=== PATIENT | female | born 1960 | race Caucasian/White ===

== ENCOUNTER 2020-06-21 16:00 | Emergency (ER) | payer OTHER, SELFPAY ==
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
[2020-06-21 17:08] VITALS: BP 131/81; PULSE 75; RESP 18; TEMP 36.8; O2SAT 98; BMI 21.7
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
== END 2020-06-21 20:08 | disposition home or self-care (01) ==
PROVIDERS: Emergency Provider Emergency Medicine; PCP Internal Medicine
DX: S09.90XA Unspecified injury of head, initial encounter (principal); S00.83XA Contusion of other part of head, initial encounter; S16.1XXA Strain of muscle, fascia and tendon at neck level, initial encounter; V43.52XA Car driver injured in collision with other type car in traffic accident, initial encounter; Y93.89 Activity, other specified; Y92.414 Local residential or business street as the place of occurrence of the external cause; Y99.9 Unspecified external cause status
CPT/HCPCS: 70450; 70486; 72125; 99284

== ENCOUNTER 2022-05-01 13:58 | Outpatient (REF) | payer MEDICARE, MEDICAID, SELFPAY ==
[2022-05-03 05:39] LABS: Lyme Abs Screen <0.90 index
== END 2022-05-01 13:59 | disposition home or self-care (01) ==
LOC: HO.HMGCLDS 13:58
PROVIDERS: PCP Family Medicine; Visit Provider Nurse Practitioner Family
DX: T14.8XXA Other injury of unspecified body region, initial encounter (principal); W57.XXXA Bitten or stung by nonvenomous insect and other nonvenomous arthropods, initial encounter; Y93.9 Activity, unspecified; Y92.9 Unspecified place or not applicable; Y99.9 Unspecified external cause status
CPT/HCPCS: 36415; 86617; 86618

== ENCOUNTER 2023-08-13 12:28 | Outpatient (AMB) | payer OTHER, SELFPAY ==
--- NOTE | 2023-08-13 12:55 | AM.OFFWIN_ITS ---
Intake Vital Signs 08/13/23 12:56 Height 5 ft 6 in Weight 128 lb BMI 20.7 BP 122/70 Blood Pressure Location Rt brachial Position Sitting Pulse 78 Pulse Source Pulse Oximeter Temp 98.2 F Temp Source Temporal Artery Scan Pulse Oximetry (%) 98 Oxygen Delivery Method Room Air Intake Visit Reasons: Abd Cramping Intake Note: pt here for abdominal cramping. Concerned w/ partial bowel obstruction. Bloating. Does not feel like having a complete bowel movement. Symptoms started last week. Took Miralax on 08/08. Very small improvement in symptoms. Patient Tobacco Use Status: Former Tobacco user Allergies doxycycline Allergy (Mild, Verified 08/13/23 14:05) Nausea Sulfa (Sulfonamide Antibiotics) Allergy (Mild, Verified 08/13/23 14:05) Rash Medication List - Last Reconciled 08/13/23 by ALEXX Sandoval cefuroxime axetil 500 mg PO Q12H 14 days citalopram 20 mg PO DAILY doxycycline hyclate 100 mg PO BID 14 days lorazepam 1.5 mg PO BEDTIME simethicone (Gas Relief (simethicone)) 180 mg PO BID PRN Do you need a note to return to daycare/school/sports/work: Yes HPI HPI Comments History of Present Illness Details patient is a 63-year-old female in today for a sick visit. Patient reports that for the week she is been feeling constipated, has been having fewer bowel movements than normal. Does report that she has been able to have small bowel movements however does not feel like she is having a full evacuation. Is having some minor bloating. Reports using MiraLax 1 days prior with mild to moderate effect. Denies fever, denies nausea, denies vomiting, denies diarrhea. Patient reports slight abdominal pain but feels this is due to abdominal distension. Denies any blood in stool. [facility] Medical History Anxiety Depression Social History Alcohol intake: never Patient Tobacco Use Status: Former Tobacco user Review of Systems Const All systems reviewed & are unremarkable except as noted in HPI and below Denies chills and Denies fever(s) Physical Exam Vital Signs: Last Vital Signs Temp 98.2 F 08/13/23 12:56 Pulse 78 08/13/23 12:56 BP 122/70 08/13/23 12:56 Pulse Ox 98 08/13/23 12:56 Oxygen Delivery Method Room Air 08/13/23 12:56 BMI result Body Mass Index 20.7 Const Other: Appearance: Alert.? Oriented X3.? No acute distress.? Head: Normocephalic. Respiratory: No respiratory distress.? Breath sounds normal.? Abdomen: Slight distention. No Abd pain on palpitation. Bowel sounds active. Skin: Skin warm and dry.? Normal skin color.? Normal skin turgor.? Back: No midline tenderness, no C-spine tenderness, full range of motion, no CVA tenderness bilaterally Neuro: Oriented X 3.? No motor deficit.? No sensory deficit. CN 2-12 intact Assessment & Plan Assessment & Plan (1) Constipation: Comment: patient has been instructed that she should drink plenty of water, can utilize senna eat food high in fiber. Can utilize MiraLax again however she should be cautious with this and not use it more than for 2 more days. Will draw labs including CBC, CMP, lipase, amylase, ESR. Will get back to patient with results. Code(s): K59.00 - Constipation, unspecified Qualifiers: Constipation type: unspecified constipation type Qualified Code(s): K59.00 - Constipation, unspecified Plan: Patient has been instructed to follow-up if not better in 3 days Plan will call with lab results Orders: Orders Amylase Today R10.9 - Unspecified abdominal pain Complete Blood Count Auto Diff Today Z13.0 - Encounter for screening for diseases of the blood and blood-forming organs and certain disorders involving the immune mechanism Comprehensive Met. Panel Today R10.9 - Unspecified abdominal pain Lipase Today R10.9 - Unspecified abdominal pain Erythrocyte Sedimentation Rate Today R10.9 - Unspecified abdominal pain Medications: New simethicone (Gas Relief (simethicone)) 180 mg PO BID PRN 30 caps 0RF abdominal distention Coding Level of Care Code Est Pt Level 3 (54839) Diagnoses Constipation, unspecified constipation type K59.00 Constipation type: unspecified constipation type Time Spent (min) 26
[2023-08-13 12:56] VITALS: BP 122/70; PULSE 78; TEMP 36.8; O2SAT 98; BMI 20.7
== END 2023-08-13 14:07 | disposition home or self-care (01) ==
PROVIDERS: PCP Physician Assistant Medical; Visit Provider Nurse Practitioner Primary Care
DX: K59.00 Constipation, unspecified (principal)
CPT/HCPCS: 99213

== ENCOUNTER 2023-08-13 14:56 | Outpatient (REF) | payer OTHER, SELFPAY ==
[2023-08-13 16:04] LABS: MANUAL DIFF FLAG NO
[2023-08-13 16:13] LABS: Basophils Percent Auto 0.3 % (0-2); Eosinophils Percent Auto 0.4 % (0-4); Hematocrit 47.6 % (37.0-47.0); Hemoglobin 15.8 g/dl (12.0-16.0); Imm Gran Abs Auto 0.04 X10*3/uL (0.00-0.03); Imm Gran Pct Auto 0.4 % (0.0-0.4); Lymphocytes Absolute Auto 1.8 X10*3/uL (1.2-4.9); Lymphocytes Percent Auto 19.6 % (20-40); Mean Corpuscular HGB Conc 33.2 g/dl (31.0-35.0); Mean Corpuscular Hemoglobin 31.3 pg (27.0-33.0); Mean Corpuscular Volume 94.3 fL (80.0-98.0); Mean Platelet Volume 9.4 fL (9.4-12.3); Monocytes Absolute Auto 0.7 X10*3/uL (0.1-1.2); Monocytes Percent Auto 7.9 % (2-11); Neutrophils Absolute Auto 6.5 x10*3/uL (2.0-8.3); Neutrophils Percent Auto 71.4 % (45-73); Platelet Count 242 X10*3/uL (160-400); Red Blood Count 5.05 X10*6/uL (4.20-5.50); Red Cell Distribution Width 12.1 % (11.0-16.0); White Blood Count 9.1 X10*3/uL (4.8-10.8)
[2023-08-13 16:53] LABS: Erythrocyte Sedimentation Rate 3 MM/HR (0-20)
[2023-08-13 17:03] LABS: Alanine Aminotransferase 16 U/L (0-31); Albumin Level 4.5 g/dL (3.5-5.0); Alkaline Phosphatase 75 U/L (39-117); Anion Gap 12 (12-20); Aspartate Amino Transferase 20 U/L (5-31); Bilirubin Total 0.6 mg/dL (0.0-1.0); Blood Urea Nitrogen 11 mg/dL (9-16); Calcium 9.3 mg/dL (8.4-10.2); Carbon Dioxide 29 mmol/L (22-29); Chloride 101 mmol/L (96-108); Estimated Glomerular Filt Rate > 60; Glucose Random 81 mg/dL (60-115); Lipase 32 U/L (8-78); Potassium 3.7 mmol/L (3.3-5.1); Sodium 138 mmol/L (135-145); Total Protein 7.5 g/dL (6.5-8.0)
[2023-08-13 17:41] LABS: Amylase 67 U/L (28-100)
== END 2023-08-13 14:57 | disposition home or self-care (01) ==
LOC: HO.HMGCLDS 14:56
PROVIDERS: PCP Physician Assistant Medical; Visit Provider Nurse Practitioner Primary Care
DX: R10.9 Unspecified abdominal pain (principal); Z13.0 Encounter for screening for diseases of the blood and blood-forming organs and certain disorders involving the immune mechanism
CPT/HCPCS: 36415; 80053; 82150; 83690; 85025; 85652

== ENCOUNTER 2023-08-16 13:56 | Outpatient (AMB) | payer OTHER, SELFPAY ==
[2023-08-16 13:57] VITALS: BP 130/70; PULSE 79; TEMP 36.4; O2SAT 97; BMI 21.0
--- NOTE | 2023-08-16 13:57 | AM.OFFWIN_ITS ---
Intake Vital Signs 08/16/23 13:57 Height 5 ft 6 in Weight 130 lb BMI 21.0 BP 130/70 Blood Pressure Location Lt brachial Position Sitting Pulse 79 Pulse Source Pulse Oximeter Temp 97.5 F Temp Source Temporal Artery Scan Pulse Oximetry (%) 97 Oxygen Delivery Method Room Air Intake Visit Reasons: Abdominal Pain Intake Note: pt is here today for abdominal pain started 1 week ago Patient Tobacco Use Status: Former Tobacco user Allergies doxycycline Allergy (Mild, Verified 08/16/23 14:14) Nausea Sulfa (Sulfonamide Antibiotics) Allergy (Mild, Verified 08/16/23 14:14) Rash Do you need a note to return to daycare/school/sports/work: No HPI HPI Comments History of Present Illness Details Patient is a 63-year-old female who was evaluated this clinic on August 12 where she was complaining of abdominal pain with a concern of a blockage. She states on August 08, she took some MiraLax because she felt constipated, she did move her bowels on August 11 but felt like she did not completely evacuate them. She has since had a lot of abdominal bloating and some abdominal pain that is generalized. She denies any fevers. She states that she is able to eat and drink although she is definitely eating and drinking less. She denies any burning with urination, increased frequency of urination, history of gallstones, heavy drinking and states she has never had her appendix removed. She states on August 12, she came in and had labs done which she was told were all normal. She states she took some more laxatives yesterday but has only been moving her bowels were very skinny but formed bowel movements, which is not her normal. [facility] Medical History Anxiety Depression Social History Alcohol intake: never Patient Tobacco Use Status: Former Tobacco user Review of Systems Const All systems reviewed & are unremarkable except as noted in HPI and below Physical Exam Vital Signs: Last Vital Signs Temp 97.5 F 08/16/23 13:57 Pulse 79 08/16/23 13:57 BP 130/70 08/16/23 13:57 Pulse Ox 97 08/16/23 13:57 Oxygen Delivery Method Room Air 08/16/23 13:57 BMI result Body Mass Index 21.0 Const General: cooperative, healthy appearing, comfortable, no acute distress and well developed Orientation/consciousness: patient oriented x3 Limitations: no limitations HEENT Head: Yes normal to inspection Eyes General: appearance normal, both eyes and all related structures Neck Neck: Yes normal visual inspection and Yes full ROM Resp Effort & Inspection: normal respiratory effort and able to speak in complete sentences GI Inspection: Yes normal to inspection Palpation (GI): Soft to palpation and Tenderness to palpation present (GI) (slight) in the epigastrum and in the RLQ Skin General skin exam: no rashes or lesions noted Neuro General: patient oriented x3 Extrem General: Yes normal to inspection Assessment & Plan Assessment & Plan (1) Abdominal pain: Code(s): R10.9 - Unspecified abdominal pain Plan: Vital signs are stable and patient is well-appearing, UA negative. PE revealed a little bit of tenderness in her right lower quadrant so I did explain to her that if the pain got worse, she should go to the ER to be ruled out for an appendicitis, did give other red flag signs and symptoms on when to go to the ER She is however able to eat and drink albeit reduced and does not have a fever. Labs were normal on August 12 including her lipase. We will get KUB to assess for constipation as her biggest complaint is feeling like she has incompletely evacuated her bowels and she feels gassy. KUB was unrevealing. (2) Constipation: Comment: Code(s): K59.00 - Constipation, unspecified Qualifiers: Constipation type: unspecified constipation type Qualified Code(s): K59.00 - Constipation, unspecified Plan: see above Plan see above Orders: Orders XR KUB Today K59.00 - Constipation, unspecified, R10.9 - Unspecified abdominal pain Coding Level of Care Code Est Pt Level 4 (23294) Diagnoses Abdominal pain R10.9 Constipation, unspecified constipation type K59.00 Constipation type: unspecified constipation type
== END 2023-08-16 16:38 | disposition home or self-care (01) ==
PROVIDERS: PCP Physician Assistant Medical; Visit Provider Physician Assistant
DX: R10.9 Unspecified abdominal pain (principal); K59.00 Constipation, unspecified
CPT/HCPCS: 99214

== ENCOUNTER 2023-08-16 14:23 | Outpatient (REF) | payer OTHER, SELFPAY ==
--- NOTE | ~2023-08-16 | XR_ITS ---
EXAMINATION: XR ABDOMEN KUB CLINICAL INDICATION: Constipation COMPARISON: None available. TECHNIQUE: AP view of the abdomen. FINDINGS: No large stool burden to suggest constipation. No dilated loops of bowel to suggest obstruction. No free air. 3 mm calcification projects over the upper pole of the left kidney questionable for a stone. Left pelvic calcifications probably represent calcified phleboliths. Degenerative changes of the lower lumbar spine. XR/XR KUB IMPRESSION: No evidence of constipation or obstruction. Question small left renal stone.
== END 2023-08-16 14:24 | disposition home or self-care (01) ==
LOC: HO.HMGCX 14:23
PROVIDERS: PCP Physician Assistant Medical; Visit Provider Physician Assistant
DX: K59.00 Constipation, unspecified (principal); R10.9 Unspecified abdominal pain
CPT/HCPCS: 74018

== ENCOUNTER 2023-08-28 13:55 | Outpatient (AMB) | payer OTHER, SELFPAY ==
--- NOTE | 2023-08-28 13:59 | AM.OFFWIN_ITS ---
Intake Vital Signs 08/28/23 14:00 Height 5 ft 6 in Weight 130 lb 8 oz BMI 21.1 BP 130/72 Blood Pressure Location Lt brachial Position Sitting Pulse 84 Pulse Source Pulse Oximeter Temp 97.2 F Temp Source Oral Pulse Oximetry (%) 97 Oxygen Delivery Method Room Air Intake Visit Reasons: EP AB pain/bloating Intake Note: pt is here for abd pain with bloating Patient Tobacco Use Status: Former Tobacco user Allergies doxycycline Allergy (Mild, Verified 08/28/23 13:59) Nausea Sulfa (Sulfonamide Antibiotics) Allergy (Mild, Verified 08/28/23 13:59) Rash Do you need a note to return to daycare/school/sports/work: No HPI EP AB pain/bloating HPI Details This is a 63-year-old female patient who presents today with abdominal pain and bloating for the last several weeks. She was seen here at the walk-in on 2 prior visits this month for the same issue. She reports abdominal tenderness and bloating, which are exacerbated with eating. She does have some constipation at times, which she takes MiraLax for. She reports today that she has been having normal bowel movements recently. No urinary or vaginal symptoms. Denies any vomiting or reflux. When seen previously here, she had labs done which were within normal limits, and x-ray which did not reveal any abnormal findings. She has an appointment to establish care with a PCP with [facility] in [place], however not until January. She denies any fevers or chills. COUNT INCLUDES THE [facility] Medical History Anxiety Depression Social History Alcohol intake: never Patient Tobacco Use Status: Former Tobacco user Review of Systems Const All systems reviewed & are unremarkable except as noted in HPI and below Physical Exam Vital Signs: Last Vital Signs Temp 97.2 F 08/28/23 14:00 Pulse 84 08/28/23 14:00 BP 130/72 08/28/23 14:00 Pulse Ox 97 08/28/23 14:00 Oxygen Delivery Method Room Air 08/28/23 14:00 BMI result Body Mass Index 21.1 Const General: cooperative and no acute distress HEENT Head: Yes normal to inspection Neck Neck: Yes no lymphadenopathy Resp Effort & Inspection: normal respiratory effort Auscultation: clear to auscultation bilaterally Cardio Rate: regular rate Rhythm: regular rhythm GI Other: mild epigastric tenderness and bloating. No rebound tenderness. No guarding. General: Yes bladder normal to palpation Bimanual exam- vagina & uterus: bladder normal to palpation Skin General skin exam: no rashes or lesions noted Extrem General: Yes capillary refill normal and Yes no clubbing, cyanosis or edema Psych Appearance: grossly normal Mental Status: mental status grossly normal Speech and movement: Normal speech and movement present Assessment & Plan Assessment & Plan (1) Abdominal bloating: Code(s): R14.0 - Abdominal distension (gaseous) Plan: Patient has ongoing abdominal pain and bloating. Normal XR and labs previously [facility]. I do feel at this point she would benefit from GI referral and/or additional abdominal imaging. She does not have a PCP appt. until January, however I called [place] PCP office and they are able to see her tomorrow, 08/28. I informed patient of this and she can make appointment. All questions were answered and she agrees to plan. Coding Level of Care Code Est Pt Level 4 (42560) Diagnoses Abdominal bloating R14.0
[2023-08-28 14:00] VITALS: BP 130/72; PULSE 84; TEMP 36.2; O2SAT 97; BMI 21.1
== END 2023-08-28 14:48 | disposition home or self-care (01) ==
PROVIDERS: PCP Physician Assistant Medical; Visit Provider Nurse Practitioner Family
DX: R14.0 Abdominal distension (gaseous) (principal)
CPT/HCPCS: 99214

== ENCOUNTER 2023-08-29 13:48 | Outpatient (AMB) | payer OTHER, SELFPAY ==
--- NOTE | 2023-08-29 12:26 | MHC.PC.OV ---
Intake Visit Reasons: Regular Check up/gi issues Allergies doxycycline Allergy (Mild, Verified 08/28/23 13:59) Nausea Sulfa (Sulfonamide Antibiotics) Allergy (Mild, Verified 08/28/23 13:59) Rash PFSH Medical History Anxiety Depression Social History Alcohol intake: never Patient Tobacco Use Status: Former Tobacco user Physical exam (Primary Care) Tobacco/Smoking Status: Tobacco use Status Patient Tobacco Use Status Former Tobacco user 08/28/23 14:00 Coding
--- NOTE | 2023-08-29 13:50 | A.OFFPC_ITS ---
Vital Signs 08/29/23 13:59 Height 5 ft 6 in Weight 133 lb BMI 21.5 BP 112/64 Blood Pressure Location Lt brachial Position Sitting Pulse 72 Pulse Source Pulse Oximeter Temp 97.8 F Temp Source Temporal Artery Scan Pulse Oximetry (%) 97 Oxygen Delivery Method Room Air Intake Visit Reasons: Regular Check up/gi issues Intake Note: patient here for new patient visit c/o abdominal pain and bloating. 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: No Is last menstrual period known: No Post menopausal: No Patient : No Allergies doxycycline Allergy (Mild, Verified 08/29/23 13:53) Nausea Sulfa (Sulfonamide Antibiotics) Allergy (Mild, Verified 08/29/23 13:53) Rash Tobacco use date assessed: 08/29/23 Dental Screening Dental Screen Date: 08/29/23 Did you have a dental visit in the last 12 months?: Yes Did you have a dental problem in the last 6 months where you did not have access to dental care?: No Was dental information given to patient?: Patient has dentist HPI HPI Comments History of Present Illness Details This is a 63-year-old female with a past medical history of depression with anxiety, hyperlipidemia, upper GI bleed in 2016 and osteoporosis presenting to establish care and discuss GI symptoms. She has constipation chronically for many years. She takes a fiber supplement. She works at [employer] 3 days per week. She does not have a problem having a bowel movement on days she doesn't work and she can relax at home in the morning. About a month ago she worked 5 days straight. She was very bloated and constipated. She took MiraLax that Saturday. She passed a bowel movement the following Saturday. She was still bloated and abdomen sore and tender. She went to urgent care. They did labwork. CBC, lipase, amylase, CMP normal. She said they also did a urine culture, and she did not have an infection. Placed on simethicone. She went back a week later because she was still constipated and bloated. KUB showed no constipation or obstruction. She went back yesterday because she is still bloated and was told to see a primary care, and she was referred here. Symptoms are stable today. She had a BM yesterday. It's soft now since she took Miralax. She started align probiotic. She denies vomiting and blood in stools. Her appetite is a little decreased, but she is still eating and drinking. She says stools are thinner recently for the past month, too. She has colonoscopies every 5 years because her father had colon cancer. She believes the last 1 was in 2019 at [facility]. She recalls she had diverticulosis, and there was a polyp removed. Osteoporosis-per patient, she is overdue for bone density exam. She takes calcium and vitamin-D. Hyperlipidemia-she tried medication for this at 1 point. She did not tolerate it. Depression with anxiety-she has a therapist and med prescriber. She is currently stable on her medications. She has a mammogram scheduled. She accepts referral to Dr. Buck for her annual gynecologic exam. [facility] Medical History (Updated 08/29/23 @ 15:09 by MARIO Chen) Osteoporosis GI bleed Hyperlipidemia Depression with anxiety Anxiety Depression Family History (Updated 08/29/23 @ 14:15 by MARIO Chen) Father Alcohol abuse CHF (congestive heart failure) Colon cancer Lung cancer Brother Alcohol abuse FH: mental illness CHF (congestive heart failure) Social History Housing: Other ([facility]) Alcohol intake: never Patient Tobacco Use Status: Former Tobacco user (years ago) e-Cigarette/Vaping Use: Former Use (she just tried it) Second Hand Smoke Exposure: No Current occupational status: employed Current occupation: [employer] Current occupational exposures/hazards: No Cognitive needs: No Vision needs: Yes Questionnaire PHQ-9 Over the last 2 weeks, how often have you been bothered by any of the following problems? 1. Little interest or pleasure in doing things: several days 2. Feeling down, depressed, or hopeless: several days 3. Trouble falling or staying asleep, or sleeping too much: several days 4. Feeling tired or having little energy: several days 5. Poor appetite or overeating: several days 6. Feeling bad about yourself - or that you are a failure or have let yourself or your family down: not at all 7. Trouble concentrating on things, such as reading the newspaper or watching television: not at all 8. Moving or speaking so slowly that other people could have noticed. Or the opposite - being so fidgety or restless that you have been moving around a lot more than usual: not at all 9. Thoughts that you would be better off or of hurting yourself in some way: not at all Total score: 5 Depression Screening Interpretation: Positive Depression Screening Follow-up: In treatment Depression Screening Done: Yes 28435 - PHQ-9 Billing: Yes Source: Developed by Drs. Greg Cedillo, Shawanda June, Vasile Guerra and colleagues, with an educational alejandrina from [employer]. Thrive Questionnaire Date Thrive assessed: 08/29/23 I am a: Patient What is your living situation today?: I have a steady place to live Within the past 12 months, did the food you bought not last and you didn't have the money to get more?: Never true Within the past 12 months, did you worry whether your food would run out before you got money to buy more?: Never true Do you have trouble paying for medicines?: No Do you have trouble getting transportation to medical appointments?: No Do you have trouble paying your heating and electricity bill?: No Do you have trouble taking care of your child, family member or friend?: No Do you have trouble with day-to-day activities such as bathing, preparing meals, shopping, managing finances, etc.?: No Are you currently unemployed and looking for a job?: No Are you interested in more education?: No Please select the resources that you would like help with: None Currently or been in a relationship where the following occur: No concerns reported THRIVE Score: 0 AUDIT C Alcohol Use Questionnaire (AUDIT-C) 1. How often do you have a drink containing alcohol?: 2-3 times a week 2. How many drinks containing alcohol do you have on a typical day when you are drinking?: 1 or 2 3. How often do you have six or more drinks on one occasion?: Never Total Score: 3 TINO-7 AMB Questionnaire TINO-7 Date TINO - 7 assessed: 08/29/23 Feeling nervous, anxious, or on edge: 1 = Several days Not being able to stop or control worryin = Several days Worrying too much about different things: 1 = Several days Trouble relaxin = Several days Being so restless that it is hard to sit still: 0 = Not at all Becoming easily annoyed or irritable: 1 = Several days Feeling afraid as if something awful might happen: 1 = Several days Total TINO-7 score (0-4 normal; 5-9 mild; 10-14 moderate; 15-21 severe): 6 Source: Developed by Drs. Greg Cedillo, Shawanda June, Vasile Guerra and colleagues, with an educational alejandrina from [employer]. TINO-7 Assessment Billing TINO-7 Assessment Tool: TINO-7 Assessment 64642 Review of Systems Const Details: Constitutional: No unexplained weight loss, fever, chills, fatigue or night sweats. Respiratory: No shortness of breath Cardiovascular: No chest pain Gastrointestinal: see HPI Genitourinary: No dysuria, hematuria, urinary frequency. Hematologic/Lymphatics: No bleeding or bruising. No painful lymph nodes. Skin: No rash or itching. Physical exam (Primary Care) Vital Signs: Last Vital Signs Temp 97.8 F 08/29/23 13:59 Pulse 72 08/29/23 13:59 BP 112/64 08/29/23 13:59 Pulse Ox 97 08/29/23 13:59 Oxygen Delivery Method Room Air 08/29/23 13:59 BMI result Body Mass Index 21.5 Tobacco/Smoking Status: Tobacco use Status Tobacco use date assessed 08/29/23 08/29/23 13:59 Patient Tobacco Use Status Former Tobacco user (years 08/29/23 13:59 ago) e-Cigarette/Vaping Use Former Use (she just tried 08/29/23 13:59 it) PHQ-9: PHQ-9 Score PHQ-9: Total score 5 08/29/23 14:15 Depression Screening Interpretation: Positive Depression Screening Follow-up: In treatment Thrive Assessment: Date of Thrive Assessment Date Thrive assessed 08/29/23 08/29/23 14:06 Currently or been in a relationship where the following occur: No concerns reported Const Other: Constitutional: Alert, in no distress. Head: Normocephalic. Neck: Supple, Full range of motion. No lymphadenopathy. Respiratory: Clear to auscultation. Cardiovascular: S1 S2 regular. No murmurs. Gastrointestinal: Abdomen soft, mild diffuse tenderness and distension. Normal bowel sounds. No palpable masses. Extremities: Warm and well perfused. No clubbing, cyanosis or edema. Psychiatric: Normal mood and affect Assessment and Plan Assessment & Plan (1) Abdominal pain: Code(s): R10.9 - Unspecified abdominal pain Qualifiers: Abdominal location: generalized Qualified Code(s): R10.84 - Generalized abdominal pain Plan: Recent labs and KUB nondiagnostic. Check CT abdomen and pelvis with/without contrast. Check TSH. Switch to Benefiber. Continue MiraLax daily as needed. Continue probiotic. Refer to Gastroenterology. Warning signs warranting ER evaluation reviewed. (2) Constipation: Comment: Code(s): K59.00 - Constipation, unspecified Qualifiers: Constipation type: unspecified constipation type Qualified Code(s): K59.00 - Constipation, unspecified Plan: Discuss trial of Linzess depending on CT results. (3) Hyperlipidemia: Code(s): E78.5 - Hyperlipidemia, unspecified Qualifiers: Hyperlipidemia type: pure hypercholesterolemia Qualified Code(s): E78.00 - Pure hypercholesterolemia, unspecified Plan: Check fasting lipid profile. (4) Depression with anxiety: Code(s): F41.8 - Other specified anxiety disorders Plan: Continue treatment plan per psych. (5) Osteoporosis: Code(s): M81.0 - Age-related osteoporosis without current pathological fracture Qualifiers: Osteoporosis type: age-related Presence of current pathological fracture: without current pathological fracture Qualified Code(s): M81.0 - Age- related osteoporosis without current pathological fracture Plan: The recommendation is to get a total of 1200mg of calcium daily from dietary sources and supplements. Women should also ingest a total of 800 to 1000 international units of vitamin D daily. Avoid tobacco use and excessive alcohol use. Weightbearing exercise as tolerated is encouraged. Bone density test ordered. Orders: Orders Lipid Panel Today M81.0 - Age-related osteoporosis without current pathological fracture, Z13.6 - Encounter for screening for cardiovascular disorders Vitamin D 1,25 dihydroxy Today M81.0 - Age-related osteoporosis without current pathological fracture, Z13.6 - Encounter for screening for cardiovascular disorders TSH reflex Free T4 Today E66.9 - Obesity, unspecified, M81.0 - Age-related osteoporosis without current pathological fracture, Z13.6 - Encounter for screening for cardiovascular disorders CT abdomen pelvis wo/w IV con Today K59.00 - Constipation, unspecified, R10.9 - Unspecified abdominal pain XR DEXA axial skeleton Today N95.1 - Menopausal and female climacteric states Referrals MANUFACTURING [employer]INE[employer] Referral Z01.419 - Encounter for gynecological examination (general) (routine) without abnormal findings Coding Level of Care Code Est Pt Level 4 (32960) Complex EM visit Add On G2211 Diagnoses Generalized abdominal pain R10.84 Abdominal location: generalized Constipation, unspecified constipation type K59.00 Constipation type: unspecified constipation type Pure hypercholesterolemia E78.00 Hyperlipidemia type: pure hypercholesterolemia Depression with anxiety F41.8 Age-related osteoporosis without current pathological fracture M81.0 Osteoporosis type: age-related Presence of current pathological fracture: without current pathological fracture Additional Codes TINO-7 Assessment Billing - TINO-7 Assessment Tool: TINO-7 Assessment 69082 ([id number])
[2023-08-29 13:59] VITALS: BP 112/64; PULSE 72; TEMP 36.6; O2SAT 97; BMI 21.5
== END 2023-08-29 14:41 | disposition home or self-care (01) ==
PROVIDERS: PCP Physician Assistant Medical; Visit Provider Physician Assistant Medical
DX: R10.84 Generalized abdominal pain (principal); K59.00 Constipation, unspecified; E78.00 Pure hypercholesterolemia, unspecified; F41.8 Other specified anxiety disorders; M81.0 Age-related osteoporosis without current pathological fracture
CPT/HCPCS: 99214; G2211

== ENCOUNTER 2023-09-09 12:05 | Outpatient (REF) | payer OTHER, SELFPAY ==
[2023-09-09 15:04] LABS: Cholesterol 257 mg/dL (<200); HDL Cholesterol 52 mg/dL (>40); LDL Cholesterol Calculated 179 mg/dL (<100); Triglycerides 130 mg/dL (<150)
[2023-09-09 15:13] LABS: TSH reflex Free T4 2.71 uIU/mL (0.32-4.0)
[2023-09-13 19:38] LABS: VITAMIN D (1,25 OH) D3 39 pg/mL; Vit D (1,25-Dihydroxy) Total 39 pg/mL (18-72); Vitamin D (1,25 OH) D2 <8 pg/mL
== END 2023-09-09 12:06 | disposition home or self-care (01) ==
LOC: HO.HMGCLDS 12:05
PROVIDERS: PCP Physician Assistant Medical; Visit Provider Physician Assistant Medical
DX: M81.0 Age-related osteoporosis without current pathological fracture (principal); E66.9 Obesity, unspecified; Z13.6 Encounter for screening for cardiovascular disorders
CPT/HCPCS: 36415; 80061; 82652; 84443

== ENCOUNTER 2023-10-11 11:14 | Outpatient (REF) | payer OTHER, SELFPAY ==
--- NOTE | ~2023-10-11 | MM_ITS ---
EXAMINATION: BONE DENSITOMETRY CLINICAL INDICATION: Menopausal and female climacteric states. COMPARISON: This is the patient's baseline examination. TECHNIQUE: Using a [employer] DXA System (software version: 13.1) manufactured by [employer], dual-energy x-ray absorptiometry was performed of the lumbar spine and left hip. The images are of good technical quality. Summary results are attached. FINDINGS: LEFT FEMUR, NECK: BMD 0.726 g/cm2, Z-score -0.8, T-score -2.2, osteopenia. LEFT FEMUR, TOTAL: BMD 0.739 g/cm2, Z-score -0.9, T-score -2.1, osteopenia. AP SPINE L1-L4: BMD 0.933 g/cm2, Z-score -0.5, T-score -2.1, osteopenia. IDENTIFIED RISK FACTORS: Early menopause, secondary osteoporosis, history of fracture (adult), osteoporosis. HISTORY OF FRACTURE: Spine. MEDICATIONS: Calcium supplements or multivitamin, vitamin D. MM/XR DEXA axial skeleton IMPRESSION: 1. DIAGNOSIS: Osteopenia based on the lowest T-score value of -2.2 in the femoral neck applying World Health Organization criteria. 2. 10-YEAR FRACTURE RISK PREDICTION, FRAX: Major osteoporotic fracture (clinical spine, forearm, hip or shoulder) 17.1%. Hip fracture 3.1%. 3. Treatment Recommendations: NOF guidelines recommend consideration for treatment in postmenopausal women and men age 50 and older presenting with the following: -A hip or vertebral (clinical or morphometric) fracture. -T-score less than or equal to -2.5 at the femoral neck or spine after appropriate evaluation to exclude secondary causes. -Low bone mass at the hip or spine and a 10-year fracture probability by FRAX of greater than or equal to 3% for hip fracture or greater than or equal to 20% for major osteoporotic fracture based on the [place] adapted WHO algorithm. 4. Other Recommendations: All treatment decisions require clinical judgment and consideration of individual patient factors, including patient preferences, comorbidities, previous drug use, risk factors not captured in the FRAX model (e.g. frailty, falls, vitamin D deficiency, increased bone turnover, interval significant decline in bone density) and possible under or overestimation of fracture risk by FRAX. Additional medical evaluation for secondary cause of low bone mineral density may be appropriate. FUTURE SCAN RECOMMENDATION: People with diagnosed cases of osteoporosis or at high risk for fracture should have regular bone mineral density tests. For patients eligible for Medicare, routine testing is allowed once every 2 years. The testing frequency can be increased to one year for patients who have rapidly progressing disease, those who are receiving or discontinuing medical therapy to restore bone mass, or have additional risk factors.
== END 2023-10-11 11:15 | disposition home or self-care (01) ==
LOC: HO.MAMMO 11:14
PROVIDERS: PCP Physician Assistant Medical; Visit Provider Physician Assistant Medical
DX: Z13.820 Encounter for screening for osteoporosis (principal); Z78.0 Asymptomatic menopausal state
CPT/HCPCS: 77080

== ENCOUNTER 2024-02-18 11:18 | Outpatient (AMB) | payer OTHER, SELFPAY ==
[2024-02-18 11:38] VITALS: BP 118/74; PULSE 79; O2SAT 98; BMI 21.5
--- NOTE | 2024-02-18 11:38 | AM.OFFWIN_ITS ---
Intake Vital Signs 3 02/18/24 11:38 Height 5 ft 6 in Weight 133 lb 6 oz BMI 21.5 BP 118/74 Blood Pressure Location Rt brachial Position Sitting Pulse 79 Pulse Source Pulse Oximeter Pulse Oximetry (%) 98 Oxygen Delivery Method Room Air Intake Visit Reasons: EP WC Cat Bite Patient Tobacco Use Status: Former Tobacco user (years ago) Allergies doxycycline Allergy (Mild, Verified 02/18/24 11:46) Nausea Sulfa (Sulfonamide Antibiotics) Allergy (Mild, Verified 02/18/24 11:46) Rash Medication List - Last Reconciled 02/18/24 by Jose G Hurley MD amoxicillin-pot clavulanate 500-125 mg 1 tab PO Q8H 10 days barium sulfate 2.1%(w/v),2.0%(w/w) Follow instructions per radiology. 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 [facility] Medical History Osteopenia Osteoporosis GI bleed Hyperlipidemia Depression with anxiety Anxiety Depression Family History Father Alcohol abuse CHF (congestive heart failure) Colon cancer Lung cancer Brother Alcohol abuse FH: mental illness CHF (congestive heart failure) Social History Housing: Other ([employer] home) Alcohol intake: never Patient Tobacco Use Status: Former Tobacco user (years ago) e-Cigarette/Vaping Use: Former Use (she just tried it) Second Hand Smoke Exposure: No Current occupational status: employed Current occupation: veterinary medicine doctor Current occupational exposures/hazards: No Cognitive needs: No Vision needs: Yes Review of Systems Const All systems reviewed & are unremarkable except as noted in HPI and below Physical Exam Vital Signs: Last Vital Signs Pulse 79 02/18/24 11:38 BP 118/74 02/18/24 11:38 Pulse Ox 98 02/18/24 11:38 Oxygen Delivery Method Room Air 02/18/24 11:38 BMI result Body Mass Index 21.5 Const General: no acute distress Orientation/consciousness: patient oriented x3 Eyes General: appearance normal, both eyes and all related structures Resp Effort & Inspection: normal respiratory effort and able to speak in complete sentences Neuro General: patient oriented x3 Extrem Hand/finger images: 2 1. 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 Medications: New 2 amoxicillin-pot clavulanate 500-125 mg 1 tab PO Q8H 30 tabs 0RF 10 days Coding Level of Care Code Est Pt Level 3 (36575) Diagnoses Cat bite of finger, initial encounter S61.259A; W55.01XA Encounter type: initial encounter
== END 2024-02-18 12:10 | disposition home or self-care (01) ==
PROVIDERS: PCP Physician Assistant Medical; Visit Provider Internal Medicine
DX: S61.259A Open bite of unspecified finger without damage to nail, initial encounter (principal); W55.01XA Bitten by cat, initial encounter

== ENCOUNTER → 2024-02-18 11:18 | Outpatient (BNVA) | payer OTHER, SELFPAY | PROVIDERS: PCP Physician Assistant Medical; Visit Provider Internal Medicine | DX: S61.251A Open bite of left index finger without damage to nail, initial encounter (principal); W55.01XA Bitten by cat, initial encounter; Y93.9 Activity, unspecified; Y92.9 Unspecified place or not applicable; Y99.9 Unspecified external cause status | CPT/HCPCS: 99212 ==

== ENCOUNTER 2024-08-29 12:56 | Outpatient (AMB) | payer OTHER, SELFPAY ==
[2024-08-29 12:59] VITALS: BP 120/70; PULSE 80; TEMP 36.7; O2SAT 97; BMI 21.5
--- NOTE | 2024-08-29 12:59 | AM.OFFWIN_ITS ---
Intake Vital Signs 08/29/24 12:59 Height 5 ft 6 in Weight 133 lb BMI 21.5 BP 120/70 Blood Pressure Location Lt brachial Position Sitting Pulse 80 Pulse Source Pulse Oximeter Temp 98.1 F Temp Source Oral Pulse Oximetry (%) 97 Intake Visit Reasons: EP Tick on back Intake Note: pt is here for tick on right side of back Patient Tobacco Use Status: Former Tobacco user (years ago) Allergies doxycycline Allergy (Mild, Verified 08/29/24 12:59) Nausea Sulfa (Sulfonamide Antibiotics) Allergy (Mild, Verified 08/29/24 12:59) Rash Medication List - Last Reconciled 08/29/24 by Dylan Bansal MD citalopram 10 mg PO DAILY clonazepam mg PO doxepin 3 mg PO BEDTIME quetiapine mg PO trazodone 50 mg PO BEDTIME PRN Do you need a note to return to daycare/school/sports/work: No HPI EP Tick on back HPI Details patient found a tick on her back and her friend pulled it off with a tick spoon still has retained mouth parts in wound she is unaware of how long this was on her back. rides horses and notes that her horse has had some ticks no fevers, chills or rash PFSH Medical History Osteopenia Osteoporosis GI bleed Hyperlipidemia Depression with anxiety Anxiety Depression Family History Father Alcohol abuse CHF (congestive heart failure) Colon cancer Lung cancer Brother Alcohol abuse FH: mental illness CHF (congestive heart failure) Social History Housing: Other ([employer] home) Alcohol intake: never Patient Tobacco Use Status: Former Tobacco user (years ago) e-Cigarette/Vaping Use: Former Use (she just tried it) Second Hand Smoke Exposure: No Current occupational status: employed Current occupation: [employer] Current occupational exposures/hazards: No Cognitive needs: No Vision needs: Yes Review of Systems Const Denies chills, Denies fatigue, Denies fever(s), Denies headache(s) and Denies weakness ENT Denies dizziness and Denies headache(s) Card Denies dyspnea Resp Denies cough, Denies dyspnea, Denies wheezing and Denies other ( shortness of breath) Musc Denies numbness and Denies tingling Skin/Breast Details: tick bite on back Neuro Denies dizziness, Denies headache(s), Denies numbness, Denies tingling, Denies paresthesias and Denies weakness Psych Denies anxiety and Denies depression Endo Denies fatigue Aller/Immun Denies wheezing Physical Exam Vital Signs: Last Vital Signs Temp 98.1 F 08/29/24 12:59 Pulse 80 08/29/24 12:59 BP 120/70 08/29/24 12:59 Pulse Ox 97 08/29/24 12:59 BMI result Body Mass Index 21.5 Const General: no acute distress and well developed Nutritional Appearance: well nourished Orientation/consciousness: patient oriented x3 HEENT Head: Yes normocephalic and Yes atraumatic Eyes General: appearance normal, both eyes and all related structures Pupils: Equal, round and reactive pupils present EOM: EOMs intact bilaterally Resp Effort & Inspection: normal respiratory effort Skin Other: tick bite on right posterolateral back tick has been removed but mouth parts remain in wound local reaction around wound but no expanding rash Neuro General: patient oriented x3 and gait normal Cranial nerves: Yes Equal, round and reactive pupils present Psych Affect: normal affect Assessment & Plan Assessment & Plan (1) Tick bite: Code(s): W57.XXXA - Bitten or stung by nonvenomous insect and other nonvenomous arthropods, initial encounter Plan: tick bite and uncertain how long the tick was attached. She gets nauseous from doxycycline but she says this is with prolonged courses and she thinks she can tolerate a prophylactic dose. Will give her ondansetron to help with any nausea. script sent for doxycycline and ondansetron. Regarding the mouth parts, I recommended that we not try to take those out. Her body will push this out over a period of months. watch for any early expanding rash Can check a Lyme titer as well. Orders: Orders Lyme IgG/IgM w/reflex to WB Today W57.XXXA - Bitten or stung by nonvenomous insect and other nonvenomous arthropods, initial encounter Medications: New doxycycline hyclate 200 mg (2 x 100 mg) PO ONCE 2 tabs 0RF 1 day ondansetron 4 mg PO Q8H PRN 3 tabs 0RF nausea and vomiting 1 day Coding Level of Care Code Est Pt Level 3 (85178) Diagnoses Tick bite W57.XXXA
== END 2024-08-29 14:16 | disposition home or self-care (01) ==
PROVIDERS: PCP Physician Assistant Medical; Visit Provider Family Medicine
DX: T63.481A Toxic effect of venom of other arthropod, accidental (unintentional), initial encounter (principal)

== ENCOUNTER → 2024-08-29 12:56 | Outpatient (BNVA) | payer OTHER, SELFPAY | PROVIDERS: PCP Physician Assistant Medical; Visit Provider Family Medicine | DX: T14.8XXA Other injury of unspecified body region, initial encounter (principal); W57.XXXA Bitten or stung by nonvenomous insect and other nonvenomous arthropods, initial encounter | CPT/HCPCS: 99212 ==

== ENCOUNTER 2024-11-20 13:46 | Outpatient (REF) | payer OTHER, SELFPAY ==
[2024-11-21 12:01] LABS: Appearance Urine Clear; Glucose Urine UA Negative (Negative); PH 6.5 (5.0-9.0); Specific Gravity - Urine 1.015 (1.005-1.025)
== END 2024-11-20 13:47 | disposition home or self-care (01) ==
LOC: HO.LNP 13:46
PROVIDERS: PCP Physician Assistant Medical; Visit Provider Physician Assistant
DX: R63.1 Polydipsia (principal); R35.89 Other polyuria; Z13.89 Encounter for screening for other disorder
CPT/HCPCS: 81003; 82948; 99202

== ENCOUNTER 2024-11-20 13:46 | Outpatient (AMB) | payer OTHER, SELFPAY ==
--- OUTSIDE RECORDS SUMMARY | 2024-11-20 13:53 | XMS_ITS | Clinical Summary ---
Author Organization [facility] Address [address] [place] [address] [place] [id number] Phone Care Team Providers Care Baker Paint Name Role Phone Jef Biswas MD Primary Care Provider [phone] Allergies Active Allergy Reactions Criticality Noted Date Comments Edcwhxe-Uzy-Isi Reductase Inhibitors Rash Low 02/16/2020 Sulfa (Sulfonamide Antibiotics) Rash Low 02/01 Medications DESVENLAFAXINE ORAL Take by mouth. Active clonazepam (KLONOPIN ORAL) Take by mouth. Active Social History Tobacco Use Types Packs/Day Years Used Date Smoking Tobacco: Former Smokeless Tobacco: Never Education Answer Date Recorded Are you interested in more education? Not on elina e 06/29/2022 Are you concerned about learning? Not on file 06/29/2022 No 06/29/2022 No 06/29/2022 Digital Access Answer Date Recorded No 07/28/2022 No 07/28/2022 No 07/28/2022 Reliable internet access at home? Not on file 07/28/2022 Device with a working camera? Not on file Comments Unknown Sex and Gender Information Value Date Recorded Sex Assigned at Female 12/24/2019 1:17 PM EDT Legal Sex Female 1:10 PM EDT Gender Identity Female 12/24/2019 1:17 PM EDT Sexual Orientation Straight 12/24/2019 1: 17 PM EDT Last Filed Vital Signs Vital Sign Reading Time Taken Comments Blood Pressure - - Pulse - - Temperature - - Respiratory Rate - - Oxygen Saturation - - Inhaled Oxygen Concentration - - Weight 63.5 kg (140 lb) 02/16/2020 1:39 PM EST Height 167.6 cm (5' 6 ) 02/16/2020 1:39 PM EST Body Mass Index 22.6 02/16/2020 1:39 PM EST Plan of Treatment Health Maintenance Due Date Last Done Comments LIPID PANEL 1961 DEPRESSION SCREENING 1973 SMOKING Hx and SMOKELESS TOBACCO SCREENING 1974 HEPATITIS C SCREENING 1979 HIV ONE-TIME SCREENING (18-6 5 YEARS) 1979 PAP SMEAR 1982 MAMMOGRAM 2001 COLOGUARD 2006 COLONOSCOPY 2006 COLORECTAL CANCER SCREENING 2006 FIT TEST 2006 FOBT 2006 SIGMOIDOSCOPY 2006 VIRTUAL COLONOSCOPY 2006 PNEUMOCOCCAL VACCINES (50+ years) (1 of 1 - PCV) 2011 Adult Td,Tdap Booster 09/10/2021 09/11/2011 INFLUENZA VACCINE (#1) 2024 COVID-19 VACCINE (3 - 2024-2 6 season) 2024 10/14/2020, 09/23/2020 RSV VACCINE (1 - 1-dose 75+ series) 01/28/2036 ZOSTER VACCINES Completed 09/09/2017, 07/05/2017 HEPATITIS A VACCINES Aged Out No long er eligible based on patient's age to complete this topic HIB VACCINES Aged Out No longer eligi ble based on patient's age to complete this topic MENINGOCOCCAL VACCINES (ACWY) Aged Out No longer eligible based on patient's age to complete this topic MENINGOCOCCAL VACCINES (B) Aged Out N o longer eligible based on patient's age to complete this topic Medical Devices Not on file Insurance MEDICARE PART A & [address] [place], [place] [address]HEALTH MEDICARE PART A & B MEDICARE PART A & [address] [place] [address]HEALTH [address] [place] [id number] MEDICARE PART A & B [facility] [address] [place] [id number] MEDICARE PART A [place] [id number] MED[place] A [place] [id number] MEDICARE PART A & B HEALTH MEDICARE PART A & B MEDICARE PART A & B [facility] Care Teams Baker Paint Relationship Specialty Start Date End Date Jef Biswas MD [address] [place] [address] PCP - General Internal Medicine 02/22/20 Additional Source Comments The information contained in this document represents components of the legal health record. It is not the complete legal health record.[facility]
--- OUTSIDE RECORDS SUMMARY | 2024-11-20 13:53 | XMS_ITS ---
Author Name [facility] Organization Unknown Care Team Organization Name Specialty Phone Email Start Date End Da te [facility] Rae Elena [facility] 05/09/2022 [facility] Alesia [facility] 01/09/2022 10/21/2023
--- OUTSIDE RECORDS SUMMARY | 2024-11-20 13:53 | XMS_ITS | Clinical Summary ---
Author Organization [facility] Address [address] [place] [address] Phone Care Team Providers Care Bead Filler Name Role Phone Dylan Bansal MD Primary Care Provider Allergies Active Allergy Reactions Criticality Noted Date Comments Butalbital Nausea And Vomiting Medium 06/28/2016 Doxycycline Nausea And Vomiting 12/10/2023 Simvastatin Rash 09/06/2009 Sulfa (Sulfonamide Antibiotics) Rash 01/02 Medications citalopram (CeleXA) 10 mg tablet Take 10 mg by mouth daily. Active LORazepam (ATIVAN) 1 mg tablet 12/20/2020 Active QUEtiapine (SEROquel) 25 mg tablet TAKE 1/2 TO 1 TABLET BY MOUTH AT BEDTIME 08/08/2021 Active tiZANidine (ZANAFLEX) 4 mg tablet TAKE 1/2 TO 1 TABLET BY MOUTH AT BEDTIME NEEDED FOR MUSCLE SPASMS 05/04/2022 Active Active Problems Problem Noted Date Diagnosed Date Right thyroid nodule 04/26/2022 Overview (12/10/2023): Thyroid US: CONCLUSIONS: Subtle nodule in the midpole of the right thyroid lobe. Heterogeneous echotexture of the thyroid gland with increased vascularity on color Doppler examination. Osteoarthritis of cervical spine 04/11/2022 Dieulafoy lesion of stomach 12/26/2021 Overview (12/10/2023): Hx of. Avoids NSAID Recurrent cold sores 10/27/2021 Tear of right supraspinatus tendon 11/25/2019 Osteoporosis 02/01/2012 Overview (12/10/2023): Elects no med for now, repeat bone density in two years. Subclinical hypothyroidism 09/11/2011 Depression 12/23/2009 Herniated lumbar intervertebral disc 05/25/2009 Low back pain 05/25/2009 Hyperlipidemia 12/25/2008 Back pain 11/11/2007 Immunizations Name Administration Dates Next Due Pfizer SARS-CoV-2 COVID-19, mRNA, LNP-S, preservative free 10/14/2020,09/23/2020 Tdap Tetanus diptheria acell ular pertussis (Boostrix; Adacel) 7yo and older 04/11/2022,09/11/2011 Zoster recombinant (Shingrix) 19yo and older 11/2017,07/05/2017 Surgical History Surgery Date Site/Laterality Comments OTHER SURGICAL HISTORY 09/23/08 PROCEDURE: GA EGD TRANSORAL CONTROL BLEEDING ANY METHOD; COMMENT: Dieulafoy lesion in stomach, bleeding control with cautery COLONOSCOPY 04/26/08 PROCEDURE: GA COLONOSCOPY STOMA DX INCLUDING COLLJ SPEC SPX; COMMENT: Up to cecum, good preparation, a couple of diverticula in the sigmoid, otherwise normal colon exam COLONOSCOPY 09/25/13 PROCEDURE: COLOREC CANC SCRN,COLONOSCPY HI RISK; COMMENT: tics; repeat in 5 yrs Medical History Medical History Date Comments Herniated lumbar intervertebral disc DX:Herniated lumbar intervertebral disc Hypercholesteremia DX:Hyperchole steremia Recurrent cold sores 10/27/2021 DX:Recurren t cold sores Osteoarthritis of cervical spine 04/11/2022 DX:Osteoarthritis of cervical spine Depression Family History Medical History Relation Name Comments Stroke Father ca colon, ca sarath ng, melanoma; basal cell ca nose Hypertension Mother cholesterol Other: Other Sister ?heart disease? chf Breast cancer Neg Hx Ovarian cancer Neg Hx Uterine cancer Neg Hx Relation Name Status Comments Brother Alive Father Mother Sister Social History Tobacco Use Types Packs/Day Years Used Date Smoking Tobacco: Former Cigarettes 0.5 17 0 03/04/1980 - 03/04/1997 Smokeless Tobacco: Never Alcohol Use Standard Drinks/Week Comments Not Currently 0 (1 standard drink = 0.6 oz pur e alcohol) Interpersonal Safety Answer Date Record ed Physical Abuse 01/20/2024 Verbal Abuse 01/20/2024 Comments Unknown Sex and Gender Information Value Date Recorded Sex Assigned at Not on file Legal Sex Female 12:11 AM EST Gender Identity Not on file Sexual Orientation Not on file Obstetrics History Para Term AB IAB SAB Ectopic Multiple Livin g Live Births 0 0 0 0 Last Filed Vital Signs Vital Sign Reading Time Taken Comments Blood Pressure 120/69 01/20/2024 5:01 PM EST Pulse 74 01/20/2024 5:21 PM EST Temperature 36.7 C (98 F) 01/20/2024 5:01 PM EST Respiratory Rate 16 01/20/2024 5:21 PM EST Oxygen Saturation 99% 01/20/2024 5:21 PM EST Inhaled Oxygen Concentration - - Weight 59 kg (130 lb) 01/20/2024 3:26 PM EST Height 167.6 cm (5' 6 ) 01/20/2024 3:26 PM EST Body Mass Index 20.98 01/20/2024 3:26 PM EST Plan of Treatment Upcoming Encounters Date Type Department Care Team (Late st Contact Info) Description 06/23/2025 1:40 PM EDT Appointment Radiology Department [address] [phone] Health Maintenance Due Date Last Done Comments Pneumococcal Vaccine: 50+ Years (1 of 1 - PCV) 2011 HIV Screening 02/10/2022 Medicare Annual Wellness Visit 02/10/2022 Social Influencers of Health Screening 02/10/2022 Depression Screening 03/04/2024 COVID-19 Vaccine ( season) 2024 01/29/2022, 10/14/2020, 09/23/2020 Influenza Vaccine (#1) 2024 Colorectal Cancer Screening: Colonoscopy 01/19/2026 01/20/2024, 04/20/2019 Cervical Cancer Screening: HPV 04/17/2026 04/17/2021 Breast Cancer Screening 06/17/2026 06/18/19 25, 04/26/2022, 01/06/2021, Additional history exists Cholesterol Screening (Lipid Panel) 04/13/2027 04/13/2022 Osteoporosis Screening (Bone Density Screening) 03/28/2031 03/28/2021, 06/27/2016 DTaP,Tdap,and Td Vaccines (3 - Td or Tdap) 04/11/2032 04/11/2022, 09/11/2011 RSV Immunization Adult Patients (1 - 1-dose 75+ series) 01/28/2036 Hepatitis C Screening Completed 05/04/2013 Zoster Vaccines Completed 09/09/2017, 07/05/2017 HIB Vaccines Aged Out No longer eligi ble based on patient's age to complete this topic HPV Vaccines Aged Out No longer eligi ble based on patient's age to complete this topic Hepatitis A Vaccines Aged Out No long er eligible based on patient's age to complete this topic Hepatitis B Vaccines Aged Out No long er eligible based on patient's age to complete this topic IPV Vaccines Aged Out No longer eligi ble based on patient's age to complete this topic MMR Vaccines Aged Out No longer eligi ble based on patient's age to complete this topic Meningococcal ACWY Vaccine Aged Out N o longer eligible based on patient's age to complete this topic Meningococcal B Vaccine Aged Out No l onger eligible based on patient's age to complete this topic RSV Immunization Patients Under 20 months Aged Out No longer eligible based on patient's age to complete this topic Varicella Vaccines Aged Out No longer eligible based on patient's age to complete this topic Procedures Procedure Name Priority Date/Time Associated Diagnosis Comments MG MAMMO DIGITAL SCREENING W RICHARD BILAT Routine 06/17/2024 11:25 AM EDT Encounter for screening mammogram for breast cancer COLONOSCOPY Routine 01/20/2024 5:00 PM EST Hx of colonic polyps LIPID PANEL Routine 04/13/2022 HPV Routine 04/17/2021 DXA BONE DENSITY STUDY 1+ SITS AXIAL SKEL Routine 03/28/2021 11:00 AM EST Other specified disorders of bone density and structure, unspecified site HEPATITIS C SCREENING Routine 05/04/2013 from Last 3 Months or Most Recently Relevant to Health Maintenance Results * MG Mammo Digital Screening w Richard bilat (06/17/2024 11:25 AM EDT) Anatomical Region Laterality Modality Breast Bilateral Mammography 06/17/2024 12:1 2 PM EDT Impressions 06/17/2024 12:14 PM EDT BILATERAL BREASTS: Negative, no evidence of malignancy. Normal interval follow- up is recommended in 12 months. BREAST DENSITY: C - The breasts are heterogeneously dense which may obscure small masses. BI-RADS CATEGORY: 1 - NEGATIVE RECOMMENDATION: Screening bilateral mammogram is recommended in 1 year. Mammo Location: [facility], [address] [place] [address], [id number], . -------- FINAL REPORT -------- Dictated By: Jose Pan Dictated Date: 06/17/2024 12:12 ET Assigned Physician: Jose Pan Reviewed and Electronically Signed By: Jsoe Pan Signed Date: 06/17/2024 12:14 ET Workstation ID: [id number] Transcribed By: Self Edit Transcribed Date: 06/17/2024 12:12 ET Narrative 06/17/2024 12:14 PM EDT STUDY: Bilateral screening mammography with tomosynthesis and CAD TECHNIQUE: Bilateral full-field digital screening mammography is obtained and read in conjunction with computer-aided detection. Tomosynthesis as well as 2-D C view imaging were obtained. COMPARISON: Comparison made to multiple prior, most recent April 26, 2022, and most remote March 10, 2019. BILATERAL BREASTS: No significant masses, suspicious calcifications or other abnormalities are seen in either breast. Procedure Note Jose Pan MD - 06/17/2024 STUDY: Bilateral screening mammography with tomosynthesis and CAD TECHNIQUE: Bilateral full-field digital screening mammography is obtainedand read in conjunction with computer-aided detection. Tomosynthesis aswell as 2-D C view imaging were obtained. COMPARISON: Comparison made to multiple prior, most recent April, and most remote March 10, 2019. BILATERAL BREASTS: No significant masses, suspicious calcifications orother abnormalities are seen in either breast. IMPRESSION: BILATERAL BREASTS: Negative, no evidence of malignancy. Normal intervalfollow-up is recommended in 12 months. BREAST DENSITY: C - The breasts are heterogeneously dense which mayobscure small masses. BI-RADS CATEGORY: 1 - NEGATIVE RECOMMENDATION: Screening bilateral mammogram is recommended in 1 year. Mammo Location: [facility], [address] [place] [address], [id number], . -------- FINAL REPORT -------- Dictated By: Jose Pan Dictated Date: 06/17/2024 12:12 ET Assigned Physician: Jose Pan Reviewed and Electronically Signed By: Jose Pan Signed Date: 06/17/2024 12:14 ET Workstation ID: [id number] Transcribed By: Self Edit Transcribed Date: 06/17/2024 12:12 ET us Dylan Bansal MD IM BI PROCEDURES Final Res ult * COLONOSCOPY Anesthesia - MAC; [facility] ENDOSCOPY (01/20/2024 5:00 PM EST) Anatomical Region Laterality Modality Endoscopy 01/20/2024 4:30 PM EST Impressions 01/20/2024 5:04 PM EST - Melanosis in the colon. - Five 4 to 9 mm polyps in the transverse colon, in the ascending colon and in the cecum, removed with a cold snare. Resected and retrieved. - One 15 mm polyp in the transverse colon, removed using injection-lift and a cold snare and removed piecemeal using a cold snare. Resected and retrieved. - Diverticulosis in the sigmoid colon and in the descending colon. - The distal rectum and anal verge are normal on retroflexion view. Recommendation: - Discharge patient to home. - Await pathology results. - Repeat colonoscopy in 2 years for surveillance. Narrative 01/20/2024 5:04 PM EST [facility] GI Patient Name: Audrey Prasad Procedure Date: 01/20/2024 4:30 PM Date of : 1960 Age: 63 Gender: Female Note Status: Finalized Attending MD: Zackery Holman MD, Procedure Date No Time: 01/20/2024 Procedure: Colonoscopy Indications: High risk colon cancer surveillance: Personal history of colonic polyps, Last colonoscopy: April 2019 Providers: Zackery Holman MD Referring MD: Zackery Holman MD Medicines: Monitored Anesthesia Care Complications: No immediate complications. Estimated blood loss: Minimal. Estimated Blood Loss: Estimated blood loss was minimal. Procedure: Pre-Anesthesia Assessment: - Prior to the procedure, a History and Physical was performed, and patient medications and allergies were reviewed. The patient is competent. The risks and benefits of the procedure and the sedation options and risks were discussed with the patient. All questions were answered and informed consent was obtained. Patient identification and proposed procedure were verified by the physician, the nurse, the acquisition cost estimator and the computer forensics technician in the pre-procedure area in the endoscopy suite. Mental Status Examination: alert and oriented. Airway Examination: normal oropharyngeal airway and neck mobility. Respiratory Examination: clear to auscultation. CV Examination: normal. Prophylactic Antibiotics: The patient does not require prophylactic antibiotics. Prior Anticoagulants: The patient has taken no anticoagulant or antiplatelet agents. ASA Grade Assessment: II - A patient with mild systemic disease. After reviewing the risks and benefits, the patient was deemed in satisfactory condition to undergo the procedure. The anesthesia plan was to use monitored anesthesia care (MAC). Immediately prior to administration of medications, the patient was re-assessed for adequacy to receive sedatives. The heart rate, respiratory rate, oxygen saturations, blood pressure, adequacy of pulmonary ventilation, and response to care were monitored throughout the procedure. The physical status of the patient was re-assessed after the procedure. After I obtained informed consent, the scope was passed under direct vision. Throughout the procedure, the patient's blood pressure, pulse, and oxygen saturations were monitored continuously. The Colonoscope was introduced through the anus and advanced to the cecum, identified by appendiceal orifice and ileocecal valve. The colonoscopy was performed with difficulty due to multiple diverticula in the colon and restricted mobility of the colon. The patient tolerated the procedure well. The quality of the bowel preparation was good. Findings: The perianal and digital rectal examinations were normal. A diffuse area of moderate melanosis was found in the entire colon. Five flat and sessile polyps were found in the transverse colon, ascending colon and cecum. The polyps were 4 to 9 mm in size. These polyps were removed with a cold snare. Resection and retrieval were complete. Estimated blood loss was minimal. A 15 mm polyp was found in the transverse colon. The polyp was flat. The polyp was removed with a saline injection-lift technique using a cold snare. The polyp was removed with a piecemeal technique using a cold snare. Resection and retrieval were complete. Estimated blood loss was minimal. Many small and large-mouthed diverticula were found in the sigmoid colon and descending colon. The retroflexed view of the distal rectum and anal verge was normal and showed no anal or rectal abnormalities. Procedure Code(s): --- Professional --- 74571, Colonoscopy, flexible; with removal of tumor(s), polyp(s), or other lesion(s) by snare technique [id number], Colonoscopy, flexible; with directed submucosal injection(s), any substance Diagnosis Code(s): --- Professional --- D12.3, Benign neoplasm of transverse colon (hepatic flexure or splenic flexure) D12.2, Benign neoplasm of ascending colon D12.0, Benign neoplasm of cecum CPT copyright 2020 [employer]. All rights reserved. The codes documented in this report are preliminary and upon assistant production manager review may be revised to meet current compliance requirements. Zackery Holman MD 01/20/2024 5:04:44 PM This report has been signed electronically.Zackery Holman MD Number of Addenda: 0 Note Initiated On: 01/20/2024 4:30 PM Scope Withdrawal Time: 0 hours 16 minutes 50 seconds Scope In: 4:36:46 PM Scope Out: 5:00:37 PM Endoscopy Department at [facility] - [address] [place] [id number] Procedure Note Zackery Holman MD - 01/20/2024 [facility] GI Patient Name: Audrey Prasad Procedure Date: 01/20/2024 4:30 PM Date of : 1960 Age: 63 Gender: Female Note Status: Finalized Attending MD: Zackery Holman MD, Procedure Date No Time: 01/20/2024 Procedure: Colonoscopy Indications: High risk colon cancer surveillance: Personalhistory of colonic polyps, Last colonoscopy: April2019 Providers: Zackery Holman MD Referring MD: Zackery Holman MD Medicines: Monitored Anesthesia Care Complications: No immediate complications. Estimated blood loss: Minimal. Estimated Blood Loss: Estimated blood loss was minimal. Procedure: Pre-Anesthesia Assessment: - Prior to the procedure, a History and Physicalwas performed, and patient medications and allergieswere reviewed. The patient is competent. The risks and benefits of the procedure and the sedation optionsand risks were discussed with the patient. Allquestions were answered and informed consent was obtained. Patient identification and proposed procedure were verified by the physician, the nurse, theanesthetist and the computer forensics technician in the pre-procedure area in the endoscopy suite. Mental Status Examination: alertand oriented. Airway Examination: normal oropharyngeal airway and neck mobility. Respiratory Examination: clear to auscultation. CV Examination: normal. Prophylactic Antibiotics: The patient does notrequire prophylactic antibiotics. Prior Anticoagulants: The patient has taken no anticoagulant or antiplatelet agents. ASA Grade Assessment: II - A patient withmild systemic disease. After reviewing the risks and benefits, the patient was deemed in satisfactory condition to undergo the procedure. The anesthesia plan was to use monitored anesthesia care (MAC). Immediately prior to administration of medications, the patient was re-assessed for adequacy to receive sedatives. The heart rate, respiratory rate, oxygen saturations, blood pressure, adequacy of pulmonary ventilation, and response to care were monitored throughout the procedure. The physical status ofthe patient was re-assessed after the procedure. After I obtained informed consent, the scope was passed under direct vision. Throughout theprocedure, the patient's blood pressure, pulse, and oxygen saturations were monitored continuously. The Colonoscope was introduced through the anus and advanced to the cecum, identified by appendiceal orifice and ileocecal valve. The colonoscopy was performed with difficulty due to multiplediverticula in the colon and restricted mobility of the colon.The patient tolerated the procedure well. The qualityof the bowel preparation was good. Findings: The perianal and digital rectal examinations were normal. A diffuse area of moderate melanosis was found inthe entire colon. Five flat and sessile polyps were found in the transverse colon, ascending colon and cecum. The polyps were 4 to 9 mm in size. These polyps were removed with a cold snare. Resection and retrieval were complete. Estimated blood loss was minimal. A 15 mm polyp was found in the transverse colon.The polyp was flat. The polyp was removed with a saline injection-lift technique using a cold snare. Thepolyp was removed with a piecemeal technique using a cold snare. Resection and retrieval were complete. Estimated blood loss was minimal. Many small and large-mouthed diverticula were foundin the sigmoid colon and descending colon. The retroflexed view of the distal rectum and anal verge was normal and showed no anal or rectal abnormalities. Procedure Code(s): --- Professional --- 60045, Colonoscopy, flexible; with removal of tumor(s), polyp(s), or other lesion(s) by snare technique [id number], Colonoscopy, flexible; with directedsubmucosal injection(s), any substance Diagnosis Code(s): --- Professional --- D12.3, Benign neoplasm of transverse colon (hepatic flexure or splenic flexure) D12.2, Benign neoplasm of ascending colon D12.0, Benign neoplasm of cecum CPT copyright 2020 [employer]. All rights reserved. The codes documented in this report are preliminary and upon assistant production manager reviewmay be revised to meet current compliance requirements. Zackery Holman MD 01/20/2024 5:04:44 PM This report has been signed electronically.Zackery Holman MD Number of Addenda: 0 Note Initiated On: 01/20/2024 4:30 PM Scope Withdrawal Time: 0 hours 16 minutes 50 seconds Scope In: 4:36:46 PM Scope Out: 5:00:37 PM Endoscopy Department at [facility] - [address] [place] [phone] IMPRESSION: - Melanosis in the colon. - Five 4 to 9 mm polyps in the transverse colon, in the ascending colon and in the cecum, removed witha cold snare. Resected and retrieved. - One 15 mm polyp in the transverse colon, removed using injection-lift and a cold snare and removed piecemeal using a cold snare. Resected andretrieved. - Diverticulosis in the sigmoid colon and in the descending colon. - The distal rectum and anal verge are normal on retroflexion view. Recommendation: - Discharge patient to home. - Await pathology results. - Repeat colonoscopy in 2 years for surveillance. Zackery Holman MD GI~PROCEDURE ORDERABLES Fin al Result * (ABNORMAL) Lipid panel (04/13/2022) LDL/HDL Ratio 4 0 - 4 Triglycerides 96 0 - 150 mg/dL Cholesterol 232(A) 0 - 200 mg/dL HDL 60 >=40 mg/dL LDL Cholesterol 153(A) 0 - 100 mg/dL Blood Venous blood specimen / Unknown Historical Provider LAB BLOOD ORDERABLES Debbie l Result * Cervical Cancer Screening: HPV (04/17/2021) Pathologist [facility] Cervical Cancer Screening: HPV negative,a bstracted Historical Provider HEALTH MAINTENANCE Final Result * DXA BONE DENSITY STUDY 1+ SITS AXIAL SKEL (03/28/2021 11:00 AM EST) Anatomical Region Laterality Modality Bone Densitometr y 01/05/2021 11:0 9 AM EDT Narrative 03/28/2021 3:38 PM EST BONE DENSITY (DEXA) Lumbar Spine T-score is -2.0. (SD relative to 20-29 y/o adult) Z-score is -0.5. (SD relative to age matched peers) This is considered osteopenia by WHO criteria. Left Hip T-score is -2.5. Z-score is -1.2. This is considered osteoporosis by WHO criteria. Lateral view the spine demonstrates mild wedging of the T12 vertebral body. IMPRESSION: This patient is considered to have osteoporosis by WHO criteria. The [facility] Department of Internal Medicine recommends using National Osteoporosis Foundation (NOF) guidelines in treatment decisions related to osteoporosis. NOF guidelines suggest considering treatment for postmenopausal women and men aged 50 or older presenting with the following: History of hip or vertebral fracture. T-score = -2.5 (DXA) at the femoral neck, total hip, or spine, after appropriate evaluation to exclude secondary causes. Low bone mass (T-score between -1.0 and -2.5 at the femoral neck or spine) AND a 10-year probability of a hip fracture = 3% OR a 10-year probability of a major osteoporosis-related fracture = 20% based on the [place]-adapted WHO algorithm Please note that all treatment decisions require clinical judgment and consideration of individual patient factors, including patient preferences, co-morbidities, previous drug use, risk factors not captured in the FRAX model (e.g., frailty, falls, vitamin D deficiency, increased bone turnover, interval significant decline in bone density) and possible under- or over-estimation of fracture risk by FRAX. Optional alternative screening schedule based on martín Atkins., [facility] March 22, 2011 for patients with osteopenia (based on hip BMD T-score) is as follows: * advanced osteopenia (T scores -2.00 to -2.49), BMD testing every year * moderate osteopenia (T scores -1.50 to -1.99), BMD testing every 5 years mild osteopenia or normal BMD (T scores -1.50 and higher), BMD testing every 15 years Procedure Note Rose Morris MD - 02/20/2022 BONE DENSITY (DEXA) Lumbar Spine T-score is -2.0. (SD relative to 20-29 y/o adult) Z-score is -0.5. (SD relative to age matched peers) This is considered osteopenia by WHO criteria. Left Hip T-score is -2.5. Z-score is -1.2. This is considered osteoporosis by WHO criteria. Lateral view the spine demonstrates mild wedging of the T12 vertebralbody. IMPRESSION: This patient is considered to have osteoporosis by WHO criteria. The [facility] Department of Internal Medicine recommendsusing National Osteoporosis Foundation (NOF) guidelines in treatment decisions related toosteoporosis. NOF guidelines suggest considering treatment for postmenopausal women and menaged 50 or older presenting with the following: History of hip or vertebral fracture. T-score = -2.5 (DXA) at the femoral neck, total hip, or spine, afterappropriate evaluation to exclude secondary causes. Low bone mass (T-score between -1.0 and -2.5 at the femoral neck or spine)AND a 10-year probability of a hip fracture = 3% OR a 10-year probability of a majorosteoporosis-related fracture = 20% based on the [place]-adapted WHO algorithm Please note that all treatment decisions require clinical judgment andconsideration of individual patient factors, including patient preferences, co- morbidities,previous drug use, risk factors not captured in the FRAX model (e.g., frailty, falls, vitaminD deficiency, increased bone turnover, interval significant decline in bone density) andpossible under- or over-estimation of fracture risk by FRAX. Optional alternative screening schedule based on martín Atkins., [facility] for patients with osteopenia (based on hip BMD T-score) is as follows: * advanced osteopenia (T scores -2.00 to -2.49), BMD testing every year * moderate osteopenia (T scores -1.50 to -1.99), BMD testing every 5years mild osteopenia or normal BMD (T scores -1.50 and higher), BMD testingevery 15 years us Cee Clement TIPTON DXA PROCEDURES Final Result * Hepatitis C Screening (05/04/2013) [facility] Hepatitis C Screening ABSTRACTED Historical Provider HEALTH MAINTENANCE Final Result from Last 3 Months or Most Recently Relevant to Health Maintenance Insurance [facility] MEDICARE Member Subscriber Plan / Payer (Ef fective 2022-Present) Name:Audrey Prasad Relation to Subscriber:Self Name:Audrey Prasad Payer ID:[id number] Group ID:[id number] Type:Not on file Address: [facility] [address] [address] MED[place] - [place] Care Teams Bead Filler Relationship Specialty Start Date End Date Dylan Bansal MD [address] [place] [address] Dr Rubi Poca [place] PCP - General 08/30/23
--- NOTE | 2024-11-20 14:22 | AM.OFFWIN_ITS ---
Intake Vital Signs 11/20/24 14:23 Height 5 ft 6 in Weight 124 lb BMI 20.0 BP 114/56 L Blood Pressure Location Lt brachial Position Sitting Pulse 87 Pulse Source Pulse Oximeter Temp 99.5 F Temp Source Oral Pulse Oximetry (%) 98 Oxygen Delivery Method Room Air Intake Visit Reasons: EP fatigue, very thirsty for a few weeks Patient Tobacco Use Status: Former Tobacco user (years ago) Allergies doxycycline Allergy (Mild, Verified 11/20/24 14:24) Nausea Sulfa (Sulfonamide Antibiotics) Allergy (Mild, Verified 11/20/24 14:24) Rash Do you need a note to return to daycare/school/sports/work: No HPI HPI Comments History of Present Illness Details This is a 64-year-old female with a medical history of depression and insomnia presenting for evaluation of fatigue, thirst and increased urinary frequency over the past 3 weeks. Patient states that she will sleep up to 12 hours a night without difficulty. Patient does report episodes of feeling that her heart rate is elevated but denies having any chest pain or shortness of breath. Additionally, patient denies having any fevers, chills, dysuria, nausea, vomiting or weight loss. [facility] Medical History Osteopenia Osteoporosis GI bleed Hyperlipidemia Depression with anxiety Anxiety Depression Family History Father Alcohol abuse CHF (congestive heart failure) Colon cancer Lung cancer Brother Alcohol abuse FH: mental illness CHF (congestive heart failure) Social History Housing: Other (Mobil home) Alcohol intake: never Patient Tobacco Use Status: Former Tobacco user (years ago) e-Cigarette/Vaping Use: Former Use (she just tried it) Second Hand Smoke Exposure: No Current occupational status: employed Current occupation: [employer] Current occupational exposures/hazards: No Cognitive needs: No Vision needs: Yes Review of Systems Const All systems reviewed & are unremarkable except as noted in HPI and below Denies body aches, Denies chills, Reports daytime sleepiness, Reports fatigue, Denies fever(s) and Denies headache(s) Eyes Reports no additional complaints ENT Reports no additional complaints and Denies headache(s) Card Reports no additional complaints and Reports palpitations Resp Reports no additional complaints GI Reports no additional complaints, Denies diarrhea, Denies nausea and Denies vomiting Denies dysuria, Reports urinary urgency and Reports other (urinary frequency) Musc Reports no additional complaints Skin/Breast Reports system reviewed and no additional complaints, except as documented Neuro Reports no additional complaints and Denies headache(s) Endo Reports fatigue, Denies polyphagia, Reports polydipsia, Reports polyuria and Reports palpitations Armaan/Lymph Reports no additional complaints Physical Exam Vital Signs: Last Vital Signs Temp 99.5 F 11/20/24 14:23 Pulse 87 11/20/24 14:23 BP 114/56 L 11/20/24 14:23 Pulse Ox 98 11/20/24 14:23 Oxygen Delivery Method Room Air 11/20/24 14:23 BMI result Body Mass Index 20.0 Const General: cooperative, comfortable, no acute distress, well developed, alert, a wake, Physically active and tired appearing; No anxious, diaphoretic or ill appearing Nutritional Appearance: average body habitus Orientation/consciousness: patient oriented x3 Limitations: no limitations Resp Effort & Inspection: normal respiratory effort, able to speak in complete sentences, not labored and not tachypneic Auscultation: clear to auscultation bilaterally Cardio Rate: regular rate Rhythm: regular rhythm GI Palpation (GI): Soft to palpation, nontender and no guarding Auscultation: normal bowel sounds General: Yes Bimanual renal exam normal bilaterally, Yes bladder normal to palpation and Yes no CVA tenderness Bimanual exam- vagina & uterus: bladder normal to palpation Back/Spine/Pelvis Back: no CVA tenderness Skin General skin exam: no rashes or lesions noted Neuro General: patient oriented x3 Psych Appearance: grossly normal Mental Status: mental status grossly normal Insight: Good insight present (Psych) Judgement: Good judgement present (Psych) Results Reviewed Results Reviewed: Patient's blood glucose is 84 and her urinalysis is not consistent with an acute urinary tract infection. Assessment & Plan Assessment & Plan (1) Polydipsia: Comment: Patient's blood glucose is 84. Review of her medical record reveals a 10 lb weight loss over the past 3 months. Urinalysis is not consistent with an acute urinary tract infection however urine culture will be obtained. Patient will be referred back to her primary care provider for ongoing evaluation and laboratories. Code(s): R63.1 - Polydipsia Plan: Follow up with PCP within 10-14 days for a re-evaluation of symptoms. Patient is in agreement with this plan of care and will call her PCP on Saturday for follow- up. Orders: Orders Glucose, Whole Blood Today R63.1 - Polydipsia UA CC w/rflx Micro + Cult Today R35.89 - Other polyuria AMB Urinalysis Automated Today Z13.9 - Encounter for screening, unspecified Coding Level of Care Code New Pt Level 4 (19775) Diagnoses Polydipsia R63.1 Time Spent (min) 20
[2024-11-20 14:23] VITALS: BP 114/56; PULSE 87; TEMP 37.5; O2SAT 98
== END 2024-11-20 15:13 | disposition home or self-care (01) ==
PROVIDERS: PCP Physician Assistant Medical; Visit Provider Physician Assistant
DX: R63.1 Polydipsia (principal); Z13.9 Encounter for screening, unspecified

== ENCOUNTER 2024-11-21 11:36 | Outpatient (REF) | payer OTHER, SELFPAY ==
--- OUTSIDE RECORDS SUMMARY | 2024-11-21 11:38 | XMS_ITS | Clinical Summary ---
Author Organization [facility] Address [address] [place] [address] Phone Care Team Providers Care Calenderer Name Role Phone Dylan Bansal MD Primary [...] Site/Laterality Comments OTHER SURGICAL HISTORY 09/23/08 PROCEDURE: ME EGD TRANSORAL CONTROL BLEEDING ANY METHOD; COMMENT: Dieulafoy lesion in stomach, bleeding control with cautery COLONOSCOPY 04/26/08 PROCEDURE: ME COLONOSCOPY STOMA DX INCLUDING COLLJ SPEC SPX; [...] 06/23/2025 1:40 PM EDT Appointment Radiology Department [address] [phone] Health Maintenance Due Date Last Done Comments [...] is recommended in 1 year. Mammo Location: [facility], [address] [place] [address], [address], . -------- FINAL REPORT -------- Dictated By: Jose Pan Dictated Date: 06/17/2024 12:12 ET Assigned Physician: Jose Pan Reviewed and Electronically Signed By: Jose Pan Signed Date: 06/17/2024 12:14 ET Workstation ID: [id number] Transcribed By: Self Edit Transcribed Date: 06/17/2024 [...] is recommended in 1 year. Mammo Location: [facility], [address] [place] [address], [address], . -------- FINAL REPORT -------- Dictated By: Jose Pan Dictated Date: 06/17/2024 12:12 ET Assigned Physician: Jose Pan Reviewed and Electronically Signed By: Jose Pan Signed Date: 06/17/2024 12:14 ET Workstation ID: [id number] Transcribed By: Self Edit Transcribed Date: 06/17/2024 12:12 ET us Dylan Bansal MD IM BI PROCEDURES Final Res ult * COLONOSCOPY Anesthesia - MAC; [facility] ENDOSCOPY (01/20/2024 5:00 PM EST) Anatomical Region [...] for surveillance. Narrative 01/20/2024 5:04 PM EST [facility] GI Patient Name: Audrey Prasad Procedure Date: [...] verified by the physician, the nurse, the round corner cutter operator and the qc lab technician in the pre-procedure area in the [...] rectal abnormalities. Procedure Code(s): --- Professional --- 91522, Colonoscopy, flexible; with removal of tumor(s), polyp(s), or other lesion(s) by snare technique 48129, Colonoscopy, flexible; with directed submucosal injection(s), any substance Diagnosis Code(s): --- Professional --- D12.3, Benign neoplasm of transverse colon (hepatic flexure or splenic flexure) D12.2, Benign neoplasm of ascending colon D12.0, Benign neoplasm of cecum CPT copyright 2020 [employer]. All rights reserved. The codes documented in this report are preliminary and upon wad impregnator review may be revised to meet current compliance requirements. Zackery Holman MD 01/20/2024 5:04:44 PM This report has been signed electronically.Zackery Holman MD Number of Addenda: 0 Note Initiated On: 01/20/2024 4:30 PM Scope Withdrawal Time: 0 hours 16 minutes 50 seconds Scope In: 4:36:46 PM Scope Out: 5:00:37 PM Endoscopy Department at [facility] - [address] [place] [id number] Procedure Note Zackery Holman MD - 01/20/2024 [facility] GI Patient Name: Audrey Prasad Procedure Date: [...] the physician, the nurse, theanesthetist and the qc lab technician in the pre-procedure area in the [...] rectal abnormalities. Procedure Code(s): --- Professional --- 66603, Colonoscopy, flexible; with removal of tumor(s), polyp(s), or other lesion(s) by snare technique 63160, Colonoscopy, flexible; with directedsubmucosal injection(s), any substance Diagnosis Code(s): --- Professional --- D12.3, Benign neoplasm of transverse colon (hepatic flexure or splenic flexure) D12.2, Benign neoplasm of ascending colon D12.0, Benign neoplasm of cecum CPT copyright 2020 [employer]. All rights reserved. The codes documented in this report are preliminary and upon wad impregnator reviewmay be revised to meet current compliance requirements. Zackery Holman MD 01/20/2024 5:04:44 PM This report has been signed electronically.Zackery Holman MD Number of Addenda: 0 Note Initiated On: 01/20/2024 4:30 PM Scope Withdrawal Time: 0 hours 16 minutes 50 seconds Scope In: 4:36:46 PM Scope Out: 5:00:37 PM Endoscopy Department at [facility] - [address] [place] [phone] IMPRESSION: - Melanosis in the colon. - [...] * Cervical Cancer Screening: HPV (04/17/2021) Pathologist [facility] Cervical Cancer Screening: HPV negative,a bstracted Historical [...] to have osteoporosis by WHO criteria. The [facility] Department of Internal Medicine recommends using National [...] alternative screening schedule based on martín Atkins., [facility] March 22, 2011 for patients with osteopenia [...] to have osteoporosis by WHO criteria. The [facility] Department of Internal Medicine recommendsusing National Osteoporosis [...] alternative screening schedule based on martín Atkins., [facility] for patients with osteopenia (based on [...] Final Result * Hepatitis C Screening (05/04/2013) [facility] Hepatitis C Screening ABSTRACTED Historical Provider HEALTH MAINTENANCE Final Result from Last 3 Months or Most Recently Relevant to Health Maintenance Insurance [facility] MEDICARE Member Subscriber Plan / Payer (Ef fective 2022-Present) Name:Audrey Prasad Relation to Subscriber:Self Name:Audrey Prasad Payer ID:[id number] Group ID:[id number] Type:Not on file Address: [facility] [address] [address] MED[place]ID - [place] Care Teams Calenderer Relationship Specialty Start Date End Date Dylan Bansal MD [address] [place] [address] Dr Rubi [place] PCP - General 08/30/23
--- OUTSIDE RECORDS SUMMARY | 2024-11-21 11:38 | XMS_ITS | Clinical Summary ---
Author Organization [facility] Address [address] [place] [address] [place] [phone] Phone Care Team Providers Care Intermodal Dispatcher Name Role Phone Jef Biswas MD Primary Care Provider [phone] Allergies Active Allergy Reactions Criticality Noted Date Comments Tsivvfb-Kcp-Dxs Reductase Inhibitors Rash Low 02/16/2020 Sulfa (Sulfonamide [...] file Insurance MEDICARE PART A & B [address] [place], [place] [address]HEALTH MEDICARE PART A & B MEDICARE PART A & B [address] [place], [place] [address]HEALTH [address] [id number] MEDICARE PART A & B [facility] [address] [id number] MEDICARE PART A [place] [address] , [address] [id number] MEDICARE PART [place] [id number] , [address] [id number] MEDICARE PART A & B HEALTH , [address] [id number] MEDICARE PART A & B MEDICARE PART A & B [facility] Care Teams Intermodal Dispatcher Relationship Specialty Start Date End Date Jef Biswas MD [address] [place] [address] PCP - General Internal Medicine 02/22/20 Additional Source Comments The information contained in this document represents components of the legal health record. It is not the complete legal health record.[facility]
== END 2024-11-21 11:37 | disposition home or self-care (01) ==
LOC: HO.LAB 11:36
PROVIDERS: Visit Provider Physician Assistant
DX: Z13.89 Encounter for screening for other disorder (principal)

== ENCOUNTER 2024-12-01 11:31 | Outpatient (REF) | payer OTHER, SELFPAY ==
[2024-12-01 14:24] LABS: MANUAL DIFF FLAG NO
[2024-12-01 14:30] LABS: Hematocrit 37.2 % (37.0-47.0); Hemoglobin 12.1 g/dl (12.0-16.0); Imm Gran Abs Auto 0.03 X10*3/uL (0.00-0.03); Imm Gran Pct Auto 0.4 % (0.0-0.4); Lymphocytes Absolute Auto 2.5 X10*3/uL (1.2-4.9); Mean Corpuscular HGB Conc 32.5 g/dl (31.0-35.0); Mean Corpuscular Hemoglobin 28.9 pg (27.0-33.0); Mean Corpuscular Volume 88.8 fL (80.0-98.0); NRBC Abs Auto 0.000 X10*3/uL (0.0-0.012); NRBC Pct Auto 0.0 /100WBC (0.0-0.2); Platelet Count 370 X10*3/uL (160-400); Red Blood Count 4.19 X10*6/uL (4.20-5.50); White Blood Count 8.2 X10*3/uL (4.8-10.8)
[2024-12-01 15:35] LABS: Alanine Aminotransferase 12 U/L (0-31); Albumin Level 4.0 g/dL (3.5-5.0); Alkaline Phosphatase 111 U/L (39-117); Anion Gap 14 (12-20); Aspartate Amino Transferase 20 U/L (5-31); Blood Urea Nitrogen 11 mg/dL (9-16); Calcium 9.5 mg/dL (8.4-10.2); Carbon Dioxide 28 mmol/L (22-29); Chloride 100 mmol/L (96-108); Cholesterol 178 mg/dL (<200); Estimated Glomerular Filt Rate > 60; HDL Cholesterol 39 mg/dL (>40); Potassium 4.1 mmol/L (3.3-5.1); Sodium 138 mmol/L (135-145); Total Protein 7.2 g/dL (6.5-8.0); Triglycerides 78 mg/dL (<150)
== END 2024-12-01 11:32 | disposition home or self-care (01) ==
LOC: HO.WFDLDS 11:31
PROVIDERS: PCP Physician Assistant Medical; Visit Provider Nurse Practitioner Family
DX: E78.00 Pure hypercholesterolemia, unspecified (principal); R53.83 Other fatigue; R63.1 Polydipsia; R63.4 Abnormal weight loss; W57.XXXA Bitten or stung by nonvenomous insect and other nonvenomous arthropods, initial encounter; R05.9 Cough, unspecified; F41.8 Other specified anxiety disorders; Z79.899 Other long term (current) drug therapy
CPT/HCPCS: 36415; 80053; 80061; 82306; 83036; 84443; 85025; 99212

== ENCOUNTER 2024-12-01 11:31 | Outpatient (AMB) | payer OTHER, SELFPAY ==
--- NOTE | 2024-12-01 11:33 | A.OFFPC_ITS ---
Vital Signs 12/01/24 11:39 Height 5 ft 6 in Weight 124 lb 2 oz BMI 20.0 BP 109/61 Blood Pressure Location Rt brachial Position Sitting Respiration 16 Pulse 76 Pulse Source Pulse Oximeter Temp 98.1 F Temp Source Oral Pulse Oximetry (%) 97 Oxygen Delivery Method Room Air Intake Visit Reasons: Unexplained weight loss RE Intake Note: patient here c/o unexplained weight loss. Molding Technician Required: No Is last menstrual period known: No Post menopausal: No Patient : No Allergies doxycycline Allergy (Mild, Verified 12/01/24 11:44) Nausea Sulfa (Sulfonamide Antibiotics) Allergy (Mild, Verified 12/01/24 11:44) Rash Medication List - Last Reconciled 12/01/24 by Ian Lynch CNP citalopram 20 mg PO DAILY clonazepam mg PO Tobacco use date assessed: 12/01/24 Dental Screening Dental Screen Date: 12/01/24 Did you have a dental visit in the last 12 months?: Yes Did you have a dental problem in the last 6 months where you did not have access to dental care?: No Was dental information given to patient?: Patient has dentist HPI HPI Comments History of Present Illness Details 64-year-old female presents with complai nts of unexplained weight loss. She has been feeling exhausted and very thirsty and was evaluated at an urgent care 1-2 weeks ago; she was told that her blood sugar was normal, 86. She continues to feel tired and thirsty. She states that she urinate a lot because she frequently drinks water. She has also always hungry. She eats 2 meals a day which she does not consider nutritious; she states I always eat fast foods. She notes associated intermittent dry cough for the past few months, has lessened in the past few weeks. She also notes fast and pounding heart beats for the past few months, which subsided a few days ago. She denies headache, chills, fever. She denies illicit drug use. She has lost 9 lb since her last visit with her PCP here in August. She notes that she is always anxious and depressed. Denies known cause for her symptoms. She takes Citalopram 20mg daily and Clonazepam 0.5mg at bedtime. She notes that her sleep is adequate. She does not want medication changes at this time. She is followed by a PMHNP monthy. She is not followed by a therapist. [facility] Medical History Osteopenia Osteoporosis GI bleed Hyperlipidemia Depression with anxiety Anxiety Depression Family History Father Alcohol abuse CHF (congestive heart failure) Colon cancer Lung cancer Brother Alcohol abuse FH: mental illness CHF (congestive heart failure) Social History Housing: Other (Mobil home) Alcohol intake: never Patient Tobacco Use Status: Former Tobacco user (years ago) e-Cigarette/Vaping Use: Former Use (she just tried it) Second Hand Smoke Exposure: No service: No Current occupational status: employed Current occupation: [employer] Current occupational exposures/hazards: No Cognitive needs: No Hearing needs: No Vision needs: Yes Questionnaire PHQ-9 Over the last 2 weeks, how often have you been bothered by any of the following problems? 1. Little interest or pleasure in doing things: nearly every day 2. Feeling down, depressed, or hopeless: nearly every day 3. Trouble falling or staying asleep, or sleeping too much: nearly every day 4. Feeling tired or having little energy: nearly every day 5. Poor appetite or overeating: more than half the days 6. Feeling bad about yourself - or that you are a failure or have let yourself or your family down: several days 7. Trouble concentrating on things, such as reading the newspaper or watching television: more than half the days 8. Moving or speaking so slowly that other people could have noticed. Or the opposite - being so fidgety or restless that you have been moving around a lot more than usual: several days 9. Thoughts that you would be better off or of hurting yourself in some way: not at all Total score: 18 Depression Screening Interpretation: Positive Depression Screening Done: Yes Source: Developed by Drs. Greg Cedillo, Shawanda June, Vasile Guerra and colleagues, with an educational alejandrina from [employer]. Thrive Questionnaire Date Thrive assessed: 11/28/24 I am a: Patient What is your living situation today?: I have a steady place to live Within the past 12 months, did the food you bought not last and you didn't have the money to get more?: I choose not to answer this question Within the past 12 months, did you worry whether your food would run out before you got money to buy more?: I choose not to answer this question Do you have trouble paying for medicines?: No Do you have trouble getting transportation to medical appointments?: No Do you have trouble paying your heating and electricity bill?: I choose not to answer this question Do you have trouble taking care of your child, family member or friend?: I ch oose not to answer this question Do you have trouble with day-to-day activities such as bathing, preparing meals, shopping, managing finances, etc.?: Yes Are you currently unemployed and looking for a job?: No Are you interested in more education?: No Please select the resources that you would like help with: Food Currently or been in a relationship where the following occur: No concerns reported THRIVE Score: 0 AUDIT C Alcohol Use Questionnaire (AUDIT-C) 2. How many drinks containing alcohol do you have on a typical day when you are drinking?: 1 or 2 Total Score: 0 TINO-7 AMB Questionnaire TINO-7 Date TINO - 7 assessed: 08/29/23 Feeling nervous, anxious, or on edge: 3 = Nearly every day Not being able to stop or control worryin = Nearly every day Worrying too much about different things: 3 = Nearly every day Trouble relaxin = More than half the days Being so restless that it is hard to sit still: 2 = More than half the days Becoming easily annoyed or irritable: 3 = Nearly every day Feeling afraid as if something awful might happen: 2 = More than half the days Total TINO-7 score (0-4 normal; 5-9 mild; 10-14 moderate; 15-21 severe): 18 Source: Developed by Drs. Greg Cedillo, Shawanda June, Vasile Guerra and colleagues, with an educational alejandrina from [employer]. Review of Systems Const Details: Const Denies chills, Reports fatigue, Denies fever(s), Denies headache(s) and Denies weakness ENT Denies dizziness and Denies headache(s) Card Denies chest pain, Denies lightheadedness, Denies dyspnea and Denies other (Palpitations) Resp Reports cough, Denies dyspnea, Denies wheezing and Denies other ( shortness of breath) GI Denies abdominal pain, Denies melena, Denies hematochezia, Denies change in bowel habits, Denies dyspepsia and Denies nausea Denies hematuria and Denies dysuria Musc Denies abnormal gait, Denies myalgias, Denies arthralgias, Denies numbness and Denies tingling Skin/Breast Denies rash, Denies unusual bruising and Denies wounds Neuro Denies abnormal gait, Denies dizziness, Denies headache(s), Denies memory loss, Denies numbness, Denies Sensory deficit (Neuro), Denies tingling and Denies weakness Psych Denies anxiety, Denies depression, Denies memory loss Endo Reports polydipsia and polyuria, Denies cold intolerance, Reports fatigue, Denies heat intolerance, Aller/Immun Denies wheezing Physical exam (Primary Care) Vital Signs: Last Vital Signs Temp 98.1 F 12/01/24 11:39 Pulse 76 12/01/24 11:39 Resp 16 12/01/24 11:39 BP 109/61 12/01/24 11:39 Pulse Ox 97 12/01/24 11:39 Oxygen Delivery Method Room Air 12/01/24 11:39 BMI result Body Mass Index 20.0 Tobacco/Smoking Status: Tobacco use Status Tobacco use date assessed 12/01/24 12/01/24 11:41 Patient Tobacco Use Status Former Tobacco user (years 12/01/24 11:34 ago) e-Cigarette/Vaping Use Former Use (she just tried 12/01/24 11:34 it) PHQ-9: PHQ-9 Score PHQ-9: Total score 18 12/01/24 11:34 Depression Screening Interpretation: Positive Thrive Assessment: Date of Thrive Assessment Date Thrive assessed 11/28/24 12/01/24 11:34 Currently or been in a relationship where the following occur: No concerns reported Const Other: General: no acute distress and well developed Nutritional Appearance: well nourished Orientation/consciousness: patient oriented x3 HENMT Head: Yes normocephalic and Yes atraumatic Eyes General: appearance normal, both eyes and all related structures Pupils: Equal, round and reactive pupils present EOM: EOMs intact bilaterally Resp Effort & Inspection: normal respiratory effort Auscultation: clear to auscultation bilaterally Cardio Rate: regular rate Rhythm: regular rhythm Heart sounds: S1 normal heart sound present, S2 normal heart sound present, no gallops, no murmurs and no rubs GI Palpation (GI): No Abdominal aortic bruit present, Soft to palpation, nontender, No hepatosplenomegaly present and No Rebound tenderness present Auscultation: normal bowel sounds General: Yes no CVA tenderness Back/Spine/Pelvis Back: no CVA tenderness Cervical Spine: cervical ROM normal and No Cervical spine tenderness Thoracic/Lumbar Spine: thoraco-lumbar ROM normal, No pain with thoraco-lumbar ROM, No thoracic spinal tenderness and No lumbar spinal tenderness Extrem General: Yes normal to inspection, No edema and No calf tenderness Skin General: Skin is pale, warm and dry. Normal skin turgor Lesions: no lesions Rashes: no rashes Trauma: no lacerations or abrasions Wounds: no wounds Nails: normal Neuro General: patient oriented x3, gait normal and no focal neuro deficit Cranial nerves: Yes Equal, round and reactive pupils present Cognition (Neuro): normal cognition Gait exam (Neuro): Normal gait present Sensory Exam: No Sensory deficit (Neuro) Psych Appearance: grossly normal Affect: normal affect Attitude: cooperative Thought process: Normal thought process present Coding Level of Care Code Est Pt Level 4 (08087) Diagnoses Fatigue R53.83 Weight loss R63.4 Excessive thirst R63.1 Cough R05.9 Depression with anxiety F41.8 Assessment & Plan Assessment & Plan (1) Fatigue: Code(s): R53.83 - Other fatigue Category: Medical Plan: Patient presents with complaints of unexplained weight loss. She has been feeling exhausted and very thirsty and was evaluated at an urgent care 1-2 weeks ago; she was told that her blood sugar was normal, 86. She continues to feel tired and thirsty. She states that she urinate a lot because she frequently drinks water. She has also always hungry. She eats 2 meals a day which she does not consider nutritious; she states I always eat fast foods. She notes associated intermittent dry cough for the past few months, has lessened in the past few weeks. She also notes fast and pounding heart beats for the past few months, which subsided a few days ago. She denies headache, chills, fever. She denies illicit drug use. She has lost 9 lb since her last visit with her PCP here in August. Normal physical exam. VSS, lung sounds clear bilaterally, heart RRR. Skin is pale, warm and dry. Normal skin turgor. Her symptoms may have multiple causes, including anemia, vitamin-D deficiency, t hyroid disorder, diabetes, lung disease/tumor. Labs and chest x-ray ordered; advised to get blood work and imaging done as planned. Adequate hydration and nutrition meal encouraged. Follow-up with PCP in 1 week. Return sooner with symptoms or concerns. Verbalized understanding and agreed with the plan. (2) Weight loss: Code(s): R63.4 - Abnormal weight loss Category: Medical Plan: Plan as above. (3) Excessive thirst: Code(s): R63.1 - Polydipsia Category: Medical Plan: Plan as above. (4) Cough: Code(s): R05.9 - Cough, unspecified Category: Medical Plan: No cough noted throughout encounter with the patient. Plan as above. (5) Depression with anxiety: Code(s): F41.8 - Other specified anxiety disorders Category: Medical Plan: She notes that she is always anxious and depressed. Denies known cause for her symptoms. She takes Citalopram 20mg daily and Clonazepam 0.5mg at bedtime. She notes that her sleep is adequate. She does not want medication changes at this time. She is followed by a PMHNP monthy. She is not followed by a therapist. PHQ-9 and TINO-7 scores revealed moderately severe depression and moderate anxiety respectively. Continue current treatment regimen. Follow-up with PMHNP as planned. Verbalized understanding and agreed with the plan. Orders: Orders Complete Blood Count Auto Diff Today R53.83 - Other fatigue, R63.1 - Polydipsia, R63.4 - Abnormal weight loss Hemoglobin A1c Today R53.83 - Other fatigue, R63.1 - Polydipsia, R63.4 - Abnormal weight loss Vitamin D 25-OH Total Today R53.83 - Other fatigue, R63.1 - Polydipsia, R63.4 - Abnormal weight loss XR chest 2V Today R05.9 - Cough, unspecified Comprehensive Met. Panel Today R53.83 - Other fatigue, R63.1 - Polydipsia, R63.4 - Abnormal weight loss TSH reflex Free T4 Today R53.83 - Other fatigue, R63.1 - Polydipsia, R63.4 - Abnormal weight loss
[2024-12-01 11:39] VITALS: BP 109/61; PULSE 76; RESP 16; TEMP 36.7; O2SAT 97
--- OUTSIDE RECORDS SUMMARY | 2024-12-01 12:58 | XMS_ITS | Clinical Summary ---
Author Organization [facility] Address [address] [place] [address] [place] [id number] Phone Care Team Providers Care Varnish Dipper Name Role Phone Jef Biswas MD Primary Care Provider [phone] Allergies Active Allergy Reactions Criticality Noted Date Comments Jagrlcc-Swh-Vkd Reductase Inhibitors Rash Low 02/16/2020 Sulfa (Sulfonamide [...] file Insurance MEDICARE PART A & B [address] [place], [place] [address]HEALTH MEDICARE PART A & B MEDICARE PART A & B [address] [place], [place] [address]HEALTH [address] [id number] MEDICARE PART A [facility] [address] [id number] MEDICARE [place] [id number] MEDICARE [place] [address] MEDICARE PART A & B HEALTH MEDICARE PART A & B MEDICARE PART A & B [facility] Care Teams Varnish Dipper Relationship Specialty Start Date End Date Jef Biswas MD [address] [place] [address] PCP - General Internal Medicine 02/22/20 Additional Source Comments The information contained in this document represents components of the legal health record. It is not the complete legal health record.[facility]
--- OUTSIDE RECORDS SUMMARY | 2024-12-01 12:59 | XMS_ITS | Clinical Summary ---
Author Organization [facility] Address [address] [place] [address] Phone Care Team Providers Care Zoning Assistant Name Role Phone Dylan Bansal MD Primary Care Provider [phone] Allergies Active Allergy Reactions Criticality Noted Date [...] 05/25/2009 Hyperlipidemia 12/25/2008 Back pain 11/11/2007 Immunizations Immunization Administration Dates Next Due Pfizer SARS-CoV-2 COVID-19, mRNA, LNP-S, preservative free 10/14/2020,09/23/2020 Tdap Tetanus diptheria acell ular pertussis (Boostrix; Adacel) 7yo and older 04/11/2022,09/11/2011 Zoster recombinant (Shingrix) 19yo and older 11/2017,07/05/2017 Surgical History Surgery Date Site/Laterality Comments OTHER SURGICAL HISTORY 09/23/08 PROCEDURE: NE EGD TRANSORAL CONTROL BLEEDING ANY METHOD; COMMENT: Dieulafoy lesion in stomach, bleeding control with cautery COLONOSCOPY 04/26/08 PROCEDURE: NE COLONOSCOPY STOMA DX INCLUDING COLLJ SPEC SPX; [...] Safety Answer Date Record ed Physical Abuse Unrecognized value 01/20/2024 Verbal Abuse Unrecognized value 01/20/2024 Comments Unknown Sex and Gender Information [...] 06/23/2025 1:40 PM EDT Appointment Radiology Department [address] [id number] Health Maintenance Due Date Last Done Comments [...] is recommended in 1 year. Mammo Location: [facility], [address] [place] [address], [address], . -------- FINAL REPORT -------- Dictated By: Jose Pan Dictated Date: 06/17/2024 12:12 ET Assigned Physician: Jose Pan Reviewed and Electronically Signed By: Jose Pan Signed Date: 06/17/2024 12:14 ET Workstation ID: [id number] Transcribed By: Self Edit Transcribed Date: 06/17/2024 [...] is recommended in 1 year. Mammo Location: [facility], [address] [place] [address], [id number], . -------- FINAL REPORT -------- Dictated By: Jose Pan Dictated Date: 06/17/2024 12:12 ET Assigned Physician: Jose Pan Reviewed and Electronically Signed By: Jose Pan Signed Date: 06/17/2024 12:14 ET Workstation ID: [id number] Transcribed By: Self Edit Transcribed Date: 06/17/2024 12:12 ET Dylan Bansal MD IM BI PROCEDURES Final Res ult * COLONOSCOPY Anesthesia - MAC; [facility] ENDOSCOPY (01/20/2024 5:00 PM EST) [...] for surveillance. Narrative 01/20/2024 5:04 PM EST [facility] GI Patient Name: Audrey Prasad [...] verified by the physician, the nurse, the signal person and the fire control technician in the pre-procedure area in the [...] rectal abnormalities. Procedure Code(s): --- Professional --- 33971, Colonoscopy, flexible; with removal of tumor(s), polyp(s), or other lesion(s) by snare technique 11241, Colonoscopy, flexible; with directed submucosal injection(s), any substance Diagnosis Code(s): --- Professional --- D12.3, Benign neoplasm of transverse colon (hepatic flexure or splenic flexure) D12.2, Benign neoplasm of ascending colon D12.0, Benign neoplasm of cecum CPT copyright 2020 [employer]. All rights reserved. The codes documented in this report are preliminary and upon costume technician review may be revised to meet current compliance requirements. Zackery Holman MD 01/20/2024 5:04:44 PM This report has been signed electronically.Zackery Holman MD Number of Addenda: 0 Note Initiated On: 01/20/2024 4:30 PM Scope Withdrawal Time: 0 hours 16 minutes 50 seconds Scope In: 4:36:46 PM Scope Out: 5:00:37 PM Endoscopy Department at [facility] - [address] [place] [phone] Procedure Note Zackery Holman MD - 01/20/2024 [facility] GI Patient Name: Audrey Prasad [...] the physician, the nurse, theanesthetist and the fire control technician in the pre-procedure area in the [...] rectal abnormalities. Procedure Code(s): --- Professional --- 45189, Colonoscopy, flexible; with removal of tumor(s), polyp(s), or other lesion(s) by snare technique 10140, Colonoscopy, flexible; with directedsubmucosal injection(s), any substance Diagnosis Code(s): --- Professional --- D12.3, Benign neoplasm of transverse colon (hepatic flexure or splenic flexure) D12.2, Benign neoplasm of ascending colon D12.0, Benign neoplasm of cecum CPT copyright 2020 [employer]. All rights reserved. The codes documented in this report are preliminary and upon costume technician reviewmay be revised to meet current compliance requirements. Zackery Holman MD 01/20/2024 5:04:44 PM This report has been signed electronically.Zackery Holman MD Number of Addenda: 0 Note Initiated On: 01/20/2024 4:30 PM Scope Withdrawal Time: 0 hours 16 minutes 50 seconds Scope In: 4:36:46 PM Scope Out: 5:00:37 PM Endoscopy Department at [facility] - [address] [place] [phone] IMPRESSION: - Melanosis in the colon. - [...] * Cervical Cancer Screening: HPV (04/17/2021) Pathologist [facility] Cervical Cancer Screening: HPV negative,a bstracted Historical [...] to have osteoporosis by WHO criteria. [facility] Department of Internal Medicine recommends using [...] alternative screening schedule based on martín Atkins., [facility] March 22, 2011 for patients with osteopenia [...] to have osteoporosis by WHO criteria. [facility] Department of Internal Medicine recommendsusing National [...] alternative screening schedule based on martín Atkins., [facility] for patients with osteopenia (based on hip BMD T-score) is as follows: * advanced osteopenia (T scores -2.00 to -2.49), BMD testing every year * moderate osteopenia (T scores -1.50 to -1.99), BMD testing every 5years mild osteopenia or normal BMD (T scores -1.50 and higher), BMD testingevery [address] [facility] Clement T[place] DXA PROCEDURES Final Result * Hepatitis C Screening (05/04/2013) [facility] Hepatitis C Screening ABSTRACTED Historical Provider MD HEALTH MAINTENANCE Final Result from Last 3 Months or Most Recently Relevant to Health Maintenance Insurance [facility] MEDICARE Member Subscriber Plan / Payer (Ef fective 2022-Present) Name:Audrey Prasad Relation to Subscriber:Self Name:Audrey Prasad Payer ID:[id number] Group ID:[id number] Type:Not on file Address: [facility] [address] [address] MEDICA[place] - [place] Care Teams Zoning Assistant Relationship Specialty Start Date End Date Dylan Bansal MD [address] [place] [address] [place] PCP - General 08/30/23
== END 2024-12-01 12:07 | disposition home or self-care (01) ==
LOC: HO.HMCFM 11:32
PROVIDERS: PCP Physician Assistant Medical; Visit Provider Nurse Practitioner Family
DX: R53.83 Other fatigue (principal); R63.4 Abnormal weight loss; R63.1 Polydipsia; R05.9 Cough, unspecified; F41.8 Other specified anxiety disorders

== ENCOUNTER 2024-12-04 13:35 | Outpatient (REF) | payer OTHER, SELFPAY ==
--- NOTE | ~2024-12-04 | XR_ITS ---
EXAMINATION: XR CHEST CLINICAL INFORMATION: R05.9 - Cough, unspecified COMPARISON: None available. TECHNIQUE: 2 views of the chest were obtained. FINDINGS: Cardiac and mediastinal contours are normal. The lungs are clear. No pleural effusion or pneumothorax. Degenerative changes of the spine. Mild old appearing T12 vertebral body compression fracture. Mild curvature of the lower thoracic spine to the left. XR/XR chest 2V IMPRESSION: No evidence for acute disease in the chest. Electronically signed by: Sneha Samuel MD 12/04/2024 01:51 PM EDT
--- OUTSIDE RECORDS SUMMARY | 2024-12-04 13:51 | XMS_ITS | Clinical Summary ---
Author Organization [facility] Address [address] [place] [address] [place] [address] Phone Care Team Providers Care Early Interventionist Name Role Phone Jef Biswas MD Primary Care Provider [phone] Allergies Active Allergy Reactions Criticality Noted Date Comments Vkcdxjj-Tmu-Sbx Reductase Inhibitors Rash Low 02/16/2020 Sulfa (Sulfonamide [...] file Insurance MEDICARE PART A & B [address] [place], [place] [address]HEALTH MEDICARE PART A & B MEDICARE PART A & B [address] [place], [place] [address]HEALTH [address] [id number] [facility] [address] [id number] MEDICARE PART A & [place] [phone] MEDICARE [place] [id number] MEDICARE PART A & B HEALTH MEDICARE PART A & B MEDICARE PART A & B [facility] Care Teams Early Interventionist Relationship Specialty Start Date End Date Jef Biswas MD [address] [place] [address] PCP - General Internal Medicine 02/22/20 Additional Source Comments The information contained in this document represents components of the legal health record. It is not the complete legal health record.[facility]
--- OUTSIDE RECORDS SUMMARY | 2024-12-04 13:51 | XMS_ITS | Clinical Summary ---
Author Organization [facility] Address [address] [place] [address] Phone Care Team Providers Care Med Surg Rn Name Role Phone Dylan Bansal MD Primary [...] Site/Laterality Comments OTHER SURGICAL HISTORY 09/23/08 PROCEDURE: OK EGD TRANSORAL CONTROL BLEEDING ANY METHOD; COMMENT: Dieulafoy lesion in stomach, bleeding control with cautery COLONOSCOPY 04/26/08 PROCEDURE: OK COLONOSCOPY STOMA DX INCLUDING COLLJ SPEC SPX; [...] 06/23/2025 1:40 PM EDT Appointment Radiology Department [address] [id number] Health Maintenance Due Date Last Done Comments [...] is recommended in 1 year. Mammo Location: [facility], [address] [place] [address], [address], . -------- FINAL REPORT -------- Dictated By: Jose Pan Dictated Date: 06/17/2024 12:12 ET Assigned Physician: Jose Pan Reviewed and Electronically Signed By: Jose Pan Signed Date: 06/17/2024 12:14 ET Workstation ID: [id number] Transcribed By: Self Edit Transcribed Date: 06/17/2024 [...] is recommended in 1 year. Mammo Location: [facility], [address] [place] [address], [address], . -------- FINAL REPORT -------- Dictated By: Jose Pan Dictated Date: 06/17/2024 12:12 ET Assigned Physician: Jose Pan Reviewed and Electronically Signed By: Jose Pan Signed Date: 06/17/2024 12:14 ET Workstation ID: [id number] Transcribed By: Self Edit Transcribed Date: 06/17/2024 12:12 ET Dylan Bansal MD IM BI PROCEDURES Final Res ult * COLONOSCOPY Anesthesia - MAC; [facility] ENDOSCOPY (01/20/2024 5:00 PM EST) Anatomical [...] for surveillance. Narrative 01/20/2024 5:04 PM EST [facility] GI Patient Name: Audrey Prasad Procedure [...] verified by the physician, the nurse, the director dermatology and the operations technician in the pre-procedure area in the [...] rectal abnormalities. Procedure Code(s): --- Professional --- 36868, Colonoscopy, flexible; with removal of tumor(s), polyp(s), or other lesion(s) by snare technique 72850, Colonoscopy, flexible; with directed submucosal injection(s), any substance Diagnosis Code(s): --- Professional --- D12.3, Benign neoplasm of transverse colon (hepatic flexure or splenic flexure) D12.2, Benign neoplasm of ascending colon D12.0, Benign neoplasm of cecum CPT copyright 2020 [employer]. All rights reserved. The codes documented in this report are preliminary and upon mixer and blender review may be revised to meet current compliance requirements. Zackery oHlman MD 01/20/2024 5:04:44 PM This report has been signed electronically.Zackery Holman MD Number of Addenda: 0 Note Initiated On: 01/20/2024 4:30 PM Scope Withdrawal Time: 0 hours 16 minutes 50 seconds Scope In: 4:36:46 PM Scope Out: 5:00:37 PM Endoscopy Department at [facility] - [address] [place] [phone] Procedure Note Zackery Holman MD - 01/20/2024 [facility] GI Patient Name: Audrey Prasad Procedure [...] the physician, the nurse, theanesthetist and the operations technician in the pre-procedure area in the [...] rectal abnormalities. Procedure Code(s): --- Professional --- 80050, Colonoscopy, flexible; with removal of tumor(s), polyp(s), or other lesion(s) by snare technique 15065, Colonoscopy, flexible; with directedsubmucosal injection(s), any substance Diagnosis Code(s): --- Professional --- D12.3, Benign neoplasm of transverse colon (hepatic flexure or splenic flexure) D12.2, Benign neoplasm of ascending colon D12.0, Benign neoplasm of cecum CPT copyright 2020 [employer]. All rights reserved. The codes documented in this report are preliminary and upon mixer and blender reviewmay be revised to meet current compliance requirements. Zackery Holman MD 01/20/2024 5:04:44 PM This report has been signed electronically.Zackery Holman MD Number of Addenda: 0 Note Initiated On: 01/20/2024 4:30 PM Scope Withdrawal Time: 0 hours 16 minutes 50 seconds Scope In: 4:36:46 PM Scope Out: 5:00:37 PM Endoscopy Department at [facility] - [address] [place] [phone] IMPRESSION: - Melanosis in the colon. - [...] * Cervical Cancer Screening: HPV (04/17/2021) Pathologist [facility] Cervical Cancer Screening: HPV negative,a bstracted Historical [...] to have osteoporosis by WHO criteria. The [facility] Department of Internal Medicine recommends [...] alternative screening schedule based on martín Atkins., [facility] March 22, 2011 for patients [...] to have osteoporosis by WHO criteria. The [facility] Department of Internal Medicine recommendsusing [...] alternative screening schedule based on martín Atkins., [facility] for patients with osteopenia (based on hip BMD T-score) is as follows: * advanced osteopenia (T scores -2.00 to -2.49), BMD testing every year * moderate osteopenia (T scores -1.50 to -1.99), BMD testing every 5years mild osteopenia or normal BMD (T scores -1.50 and higher), BMD testingevery 15 years [facility] TIPTON DXA PROCEDURES Final Result * Hepatitis C Screening (05/04/2013) [facility] Hepatitis C Screening ABSTRACTED Historical Provider MD HEALTH MAINTENANCE Final Result from Last 3 Months or Most Recently Relevant to Health Maintenance Insurance [facility] [facility] MEDICARE Member Subscriber Plan / Payer (Ef fective 2022-Present) Name:Audrey Prasad Relation to Subscriber:Self Name:Audrey Prasad Payer ID:[id number] Group ID:[id number] Type:Not on file Address: [facility] [address] [id number] MEDICAID - [place] Care Teams Med Surg Rn Relationship Specialty Start Date End Date Dylan Bansal MD [address] [place] [address] Dr [place] PCP - General 08/30/23
== END 2024-12-04 13:36 | disposition home or self-care (01) ==
LOC: HO.HMGCX 13:35
PROVIDERS: PCP Nurse Practitioner Family; Visit Provider Nurse Practitioner Family
DX: R05.9 Cough, unspecified (principal)
CPT/HCPCS: 71046

== ENCOUNTER → 2024-12-04 13:40 | Outpatient (BNV) | payer OTHER, SELFPAY | PROVIDERS: PCP Nurse Practitioner Family; Visit Provider Radiology Diagnostic Radiology | DX: R05.9 Cough, unspecified (principal) | CPT/HCPCS: 71046 ==

== ENCOUNTER 2024-12-18 11:26 | Outpatient (REF) | payer OTHER, SELFPAY ==
[2024-12-18 15:59] LABS: Magnesium 2.3 mg/dL (1.6-2.6)
== END 2024-12-18 11:27 | disposition home or self-care (01) ==
LOC: HO.WFDLDS 11:26
PROVIDERS: PCP Physician Assistant Medical; Visit Provider Nurse Practitioner Family
DX: R00.2 Palpitations (principal); R73.03 Prediabetes; R63.4 Abnormal weight loss; R53.83 Other fatigue; Z80.0 Family history of malignant neoplasm of digestive organs; Z98.890 Other specified postprocedural states
CPT/HCPCS: 36415; 83735; 96127; 99212

== ENCOUNTER 2024-12-18 11:26 | Outpatient (AMB) | payer OTHER, SELFPAY ==
--- NOTE | 2024-12-18 11:27 | MHC.PC.OV ---
Vital Signs 12/18/24 11:32 Height 5 ft 6 in Weight 125 lb 6 oz BMI 20.2 BP 118/72 Blood Pressure Location Lt brachial Position Sitting Respiration 12 Pulse 76 Pulse Source Pulse Oximeter Temp 97.2 F Temp Source Oral Pulse Oximetry (%) 99 Oxygen Delivery Method Room Air Intake Visit Reasons: Avril's Pt. / Review recent x-ray and labs Intake Note: Follow up to review xrays and labs Dealer Analyst Required: No Allergies doxycycline Allergy (Mild, Verified 12/18/24 11:28) Nausea Sulfa (Sulfonamide Antibiotics) Allergy (Mild, Verified 12/18/24 11:28) Rash Tobacco use date assessed: 12/18/24 Dental Screening Dental Screen Date: 12/18/24 Did you have a dental visit in the last 12 months?: Yes Did you have a dental problem in the last 6 months where you did not have access to dental care?: No Was dental information given to patient?: Patient has dentist HPI HPI Comments History of Present Illness Details 64-year-old female with a past medical history of depression with anxiety, hyperlipidemia, upper GI bleed in 2016 and osteoporosis, fhx colon ca History of Present Illness The patient is a 64-year-old female presenting with unintentional weight loss, chronic cough, palpitations, and fatigue. Unintentional weight loss: - Weight loss: 10 lbs over 3 months. - No change in dietary intake, Wt stable since 12/01/24 visit Chronic cough: - Persistent for 3 months - Negative COVID test. CXR negative Palpitations: - New-onset; associated audible pounding. - Cough increases during these episodes - Denies chest pain or syncope - takes magnesium @ hs to sleep unsure of amt Fatigue: - Persistent without improvement. Review of Systems - General: Reports fatigue, unintentional weight loss, excessive thirst previously. - Respiratory: Reports persistent cough. - Cardiovascular: Reports heart palpitations. - Gastrointestinal: Denies nausea, vomiting, abdominal pain. - Endocrinology: Reports prediabetic range A1c noted previously. Physical Exam General: Well developed, well nourished, in no acute distress. Appears stated age. Head: Normocephalic, atraumatic. Eyes: Pupils are equal, round and reactive to light and accommodation. Conjunctivae are clear. Vision grossly normal. Lungs: Clear to auscultation bilaterally. No rales, rhonchi or wheeze noted. Good air flow in all [place]. Heart: Regular rate and rhythm. No murmurs, click, rubs or gallops are noted. Pulses: Peripheral pulses are equal and palpable bilaterally. Extremities: No clubbing, cyanosis nor edema is noted. Psych: Mood and affect appropriate. Results - Normal chest x-ray - Normal CT of the abdomen in January 2024 - Colonoscopy revealed hyperplastic polyps; non-malignant 01/2024 - Labs 12/01/24 reviewed, Hga1c 6.1% otherwise nondiagnsotic Discussion Notes I reviewed with the patient her symptoms of weight loss, cough, heart palpitations, and fatigue. A plan was made to evaluate magnesium levels, ?? causing palpitations. I discussed the implications of polyps noted in her colonoscopy and the importance of regular monitoring due to her family history of colorectal cancer. A Holter monitor and an echocardiogram were recommended for further cardiac evaluation of palpitations. I advised follow-up with her primary care provider but offered to coordinate internally for an earlier appointment if possible. The patient consented to all evaluations and will be contacted for scheduling cardiac diagnostics. Patient was given time to ask questions. All questions were answered to their satisfaction. Assessment and Plan 1. Unintentional weight loss - Continue monitoring; no immediate interventions due to weight stability. 2. Chronic cough - Cardiac diagnostics and monitoring necessary. 3. Palpitations - Check magnesium levels; Holter monitor and echocardiogram planned. 4. Fatigue - Evaluate post cardiac assessment completion. 5.Family hx of colong ca; personal hx of pre-cancerous polyps - Regular follow-up colonoscopies advised. - Maintain vigilance with screening procedures. Patient Instructions - Complete lab test for magnesium level today. - Follow instructions for Holter monitor and echocardiogram once scheduled. - Attend follow-up visits as arranged and discuss any new symptoms. - I recommend fu with PCP however if not able to coordinate, i am willing to fu. ; I will send an internal message to PCP Consent The patient consented to laboratory testing of magnesium levels and cardiac evaluations including Holter monitor and echocardiogram after discussing potential benefits and overall indications. Consent was obtained verbally during the conversation and the patient expressed understanding of the necessity and relevance of these evaluations in addressing her primary concerns. Patient was informed and verbally consented to the use of an ambient scribe for clinic note documentation during this visit. Total time spent caring for the patient today was 30 minutes. This includes time spent before the visit reviewing the chart, time spent during the visit, and time spent after the visit on documentation, reviewing laboratory results, diagnostic imaging, medications, performing a medically necessary evaluation, counseling on diagnoses, care coordination, ordering appropriate tests, ordering appropriate medications, review of tests performed by other providers, reporting test results with the patient, communication with other healthcare providers. [facility] Medical History Osteopenia Osteoporosis GI bleed Hyperlipidemia Depression with anxiety Anxiety Depression Family History Father Alcohol abuse CHF (congestive heart failure) Colon cancer Lung cancer Brother Alcohol abuse FH: mental illness CHF (congestive heart failure) Social History Housing: Other (Mobil home) Alcohol intake: never Patient Tobacco Use Status: Former Tobacco user (years ago) e-Cigarette/Vaping Use: Former Use (she just tried it) Second Hand Smoke Exposure: No service: No Current occupational status: employed Current occupation: [employer] Current occupational exposures/hazards: No Cognitive needs: No Hearing needs: No Vision needs: Yes Questionnaire PHQ-9 Over the last 2 weeks, how often have you been bothered by any of the following problems? 1. Little interest or pleasure in doing things: not at all 2. Feeling down, depressed, or hopeless: not at all 3. Trouble falling or staying asleep, or sleeping too much: not at all 4. Feeling tired or having little energy: not at all 5. Poor appetite or overeating: not at all 6. Feeling bad about yourself - or that you are a failure or have let yourself or your family down: not at all 7. Trouble concentrating on things, such as reading the newspaper or watching television: not at all 8. Moving or speaking so slowly that other people could have noticed. Or the opposite - being so fidgety or restless that you have been moving around a lot more than usual: not at all 9. Thoughts that you would be better off or of hurting yourself in some way: not at all Total score: 0 Depression Screening Interpretation: Negative Depression Screening Done: Yes 95921 - PHQ-9 Billing: Yes Source: Developed by Drs. Greg Cedillo, Shawanda June, Vasile Guerra and colleagues, with an educational alejandrina from [employer]. Thrive Questionnaire Date Thrive assessed: 12/18/24 I am a: Patient What is your living situation today?: I have a steady place to live Within the past 12 months, did the food you bought not last and you didn't have the money to get more?: I choose not to answer this question Within the past 12 months, did you worry whether your food would run out before you got money to buy more?: I choose not to answer this question Do you have trouble paying for medicines?: No Do you have trouble getting transportation to medical appointments?: No Do you have trouble paying your heating and electricity bill?: I choose not to answer this question Do you have trouble taking care of your child, family member or friend?: I choose not to answer this question Do you have trouble with day-to-day activities such as bathing, preparing meals, shopping, managing finances, etc.?: Yes Are you currently unemployed and looking for a job?: No Are you interested in more education?: No Please select the resources that you would like help with: Food Currently or been in a relationship where the following occur: No concerns reported THRIVE Score: 0 TINO-7 AMB Questionnaire TINO-7 Date TINO - 7 assessed: 12/18/24 Feeling nervous, anxious, or on edge: 0 = Not at all Not being able to stop or control worryin = Not at all Worrying too much about different things: 0 = Not at all Trouble relaxin = Not at all Being so restless that it is hard to sit still: 0 = Not at all Becoming easily annoyed or irritable: 0 = Not at all Feeling afraid as if something awful might happen: 0 = Not at all Total TINO-7 score (0-4 normal; 5-9 mild; 10-14 moderate; 15-21 severe): 0 Source: Developed by Drs. Greg Cedillo, Vasile Bustamante and colleagues, with an educational alejandrina from [employer]. TINO-7 Assessment Billing TINO-7 Assessment Tool: TINO-7 Assessment 55022 Physical exam (Primary Care) Vital Signs: Last Vital Signs Temp 97.2 F 12/18/24 11:32 Pulse 76 12/18/24 11:32 Resp 12 12/18/24 11:32 BP 118/72 12/18/24 11:32 Pulse Ox 99 12/18/24 11:32 Oxygen Delivery Method Room Air 12/18/24 11:32 BMI result Body Mass Index 20.2 Tobacco/Smoking Status: Tobacco use Status Tobacco use date assessed 12/18/24 12/18/24 11:34 Patient Tobacco Use Status Former Tobacco user (years 12/18/24 11:34 ago) e-Cigarette/Vaping Use Former Use (she just tried 12/18/24 11:34 it) PHQ-9: PHQ-9 Score PHQ-9: Total score 0 12/18/24 11:57 Depression Screening Interpretation: Negative Thrive Assessment: Date of Thrive Assessment Date Thrive assessed 12/18/24 12/18/24 11:34 Currently or been in a relationship where the following occur: No concerns reported Coding Level of Care Code Est Pt Level 4 (48359) Complex EM visit Add On G2211 Diagnoses Palpitations R00.2 Prediabetes R73.03 Weight loss R63.4 Fatigue R53.83 Family history of colon cancer Z80.0 History of colonoscopy Z98.890 Additional Codes TINO-7 Assessment Billing - TINO-7 Assessment Tool: TINO-7 Assessment 43083 ([id number]) PHQ-9 - 38962 - PHQ-9 Billing: Yes ([id number]) Assessment & Plan Assessment & Plan (1) Palpitations: Code(s): R00.2 - Palpitations Category: Medical (2) Prediabetes: Code(s): R73.03 - Prediabetes Category: Medical (3) Weight loss: Code(s): R63.4 - Abnormal weight loss Category: Medical (4) Fatigue: Code(s): R53.83 - Other fatigue Category: Medical (5) Family history of colon cancer: Code(s): Z80.0 - Family history of malignant neoplasm of digestive organs Category: Medical (6) History of colonoscopy: Onset Date: ~01/2024 Code(s): Z98.890 - Other specified postprocedural states Category: Medical Plan . Orders: Orders CA echo transthoracic complete Today R00.2 - Palpitations Magnesium Today R00.2 - Palpitations ECG 3 day holter monitor Today R00.2 - Palpitations
[2024-12-18 11:32] VITALS: BP 118/72; PULSE 76; RESP 12; TEMP 36.2; O2SAT 99; BMI 20.2
--- OUTSIDE RECORDS SUMMARY | 2024-12-18 14:12 | XMS_ITS | Clinical Summary ---
Author Organization [facility] Address [address] [place] [address] [place] [address] Phone Care Team Providers Care Blueprint Reader Name Role Phone Jef Biswas MD Primary Care Provider [phone] Allergies Active Allergy Reactions Criticality Noted Date Comments Htmrzjz-Ajg-Tid Reductase Inhibitors Rash Low 02/16/2020 Sulfa (Sulfonamide [...] file Insurance MEDICARE PART A & B [address] [place], [place] [address]HEALTH MEDICARE PART A & B MEDICARE PART A & B [address] [place], [place] [address]HEALTH [address] [place] [id number] MEDICARE PART A & B [facility] [address] [id number] MEDICARE [place] A [place] [address] [place]ICARE [place] [id number] MEDICARE PART A & B HEALTH MEDICARE PART A & B MEDICARE PART A & B [facility] Care Teams Blueprint Reader Relationship Specialty Start Date End Date Jef Biswas MD [address] [place] [address] PCP - General Internal Medicine 02/22/20 Additional Source Comments The information contained in this document represents components of the legal health record. It is not the complete legal health record.[facility]
--- OUTSIDE RECORDS SUMMARY | 2024-12-18 14:12 | XMS_ITS | Clinical Summary ---
Author Organization [facility] Address [address] [place] [address] Phone Care Team Providers Care Outdoor Emergency Care Technician Name Role Phone Dylan Bansal MD Primary [...] Site/Laterality Comments OTHER SURGICAL HISTORY 09/23/08 PROCEDURE: [place] EGD TRANSORAL CONTROL BLEEDING ANY METHOD; COMMENT: Dieulafoy lesion in stomach, bleeding control with cautery COLONOSCOPY 04/26/08 PROCEDURE: [place] COLONOSCOPY STOMA DX INCLUDING COLLJ SPEC SPX; [...] 06/23/2025 1:40 PM EDT Appointment Radiology Department [address] [id number] Health Maintenance Due Date Last Done Comments [...] is recommended in 1 year. Mammo Location: [facility], [address] [place] [address], [phone], . -------- FINAL REPORT -------- Dictated By: Jose Pan Dictated Date: 06/17/2024 12:12 ET Assigned Physician: Jose Pan Reviewed and Electronically Signed By: Jose Pan Signed Date: 06/17/2024 12:14 ET Workstation ID: [id number] Transcribed By: Self Edit Transcribed Date: 06/17/2024 [...] is recommended in 1 year. Mammo Location: [facility], [address] [place] [address], [id number], . -------- FINAL REPORT -------- Dictated By: Jose Pan Dictated Date: 06/17/2024 12:12 ET Assigned Physician: Jose Pan Reviewed and Electronically Signed By: Jose Pan Signed Date: 06/17/2024 12:14 ET Workstation ID: [id number] Transcribed By: Self Edit Transcribed Date: 06/17/2024 12:12 ET Dylan Bansal MD IM BI PROCEDURES Final Res ult * COLONOSCOPY Anesthesia - MAC; [facility] ENDOSCOPY (01/20/2024 5:00 PM EST) [...] for surveillance. Narrative 01/20/2024 5:04 PM EST [facility] GI Patient Name: Audrey Prasad Procedure [...] verified by the physician, the nurse, the recruitment advertising manager and the automobile glass technician in the pre-procedure area in the [...] rectal abnormalities. Procedure Code(s): --- Professional --- 89961, Colonoscopy, flexible; with removal of tumor(s), polyp(s), or other lesion(s) by snare technique 62152, Colonoscopy, flexible; with directed submucosal injection(s), any substance Diagnosis Code(s): --- Professional --- D12.3, Benign neoplasm of transverse colon (hepatic flexure or splenic flexure) D12.2, Benign neoplasm of ascending colon D12.0, Benign neoplasm of cecum CPT copyright 2020 [employer]. All rights reserved. The codes documented in this report are preliminary and upon sales support engineer review may be revised to meet current compliance requirements. Zackery Holman MD 01/20/2024 5:04:44 PM This report has been signed electronically.Zackery Holman MD Number of Addenda: 0 Note Initiated On: 01/20/2024 4:30 PM Scope Withdrawal Time: 0 hours 16 minutes 50 seconds Scope In: 4:36:46 PM Scope Out: 5:00:37 PM Endoscopy Department at [facility] - [address] [place] [phone] Procedure Note Zackery Holman MD - 01/20/2024 [facility] GI Patient Name: Audrey Prasad Procedure Date: 01/20/2024 4:30 PM Date of : 1960 Age: 63 Gender: Female Note Status: Finalized Attending MD: Zackery Holman MD, Procedure Date No Time: 01/20/2024 Procedure: Colonoscopy Indications: High risk colon cancer surveillance: Personalhistory of colonic polyps, Last colonoscopy: April2019 Providers: Zackery Hloman MD Referring MD: Zackery Holman MD Medicines: [...] the physician, the nurse, theanesthetist and the automobile glass technician in the pre-procedure area in the [...] rectal abnormalities. Procedure Code(s): --- Professional --- 47200, Colonoscopy, flexible; with removal of tumor(s), polyp(s), or other lesion(s) by snare technique 31503, Colonoscopy, flexible; with directedsubmucosal injection(s), any substance Diagnosis Code(s): --- Professional --- D12.3, Benign neoplasm of transverse colon (hepatic flexure or splenic flexure) D12.2, Benign neoplasm of ascending colon D12.0, Benign neoplasm of cecum CPT copyright 2020 [employer]. All rights reserved. The codes documented in this report are preliminary and upon sales support engineer reviewmay be revised to meet current compliance requirements. Zackery Holman MD 01/20/2024 5:04:44 PM This report has been signed electronically.Zackery Holman MD Number of Addenda: 0 Note Initiated On: 01/20/2024 4:30 PM Scope Withdrawal Time: 0 hours 16 minutes 50 seconds Scope In: 4:36:46 PM Scope Out: 5:00:37 PM Endoscopy Department at [facility] - [address] [place] [phone] IMPRESSION: - Melanosis in the colon. - [...] HPV (04/17/2021) Pathologist [facility] Cervical Cancer Screening: HPV negative,a bstracted Historical [...] to have osteoporosis by WHO criteria. [facility] Department of Internal Medicine recommends using National [...] alternative screening schedule based on martín Atkins., [facility] March 22, 2011 for patients with [...] to have osteoporosis by WHO criteria. [facility] Department of Internal Medicine recommendsusing National Osteoporosis [...] alternative screening schedule based on martín Atkins., [facility] for patients with osteopenia (based on hip BMD T-score) is as follows: * advanced osteopenia (T scores -2.00 to -2.49), BMD testing every year * moderate osteopenia (T scores -1.50 to -1.99), BMD testing every 5years mild osteopenia or normal BMD (T scores -1.50 and higher), BMD testingevery 15 years [facility] [place] DXA PROCEDURES Final Result * Hepatitis C Screening (05/04/2013) [facility] Hepatitis C Screening ABSTRACTED Historical Provider MD HEALTH MAINTENANCE Final Result from Last 3 Months or Most Recently Relevant to Health Maintenance Insurance [facility] MEDICARE Member Subscriber Plan / Payer (Ef fective 2022-Present) Name:Audrey Prasad Relation to Subscriber:Self Name:Audrey Prasad Payer ID:[id number] Group ID:[id number] Type:Not on file Address: [facility] [address] [address] MED[place] Care Teams Outdoor Emergency Care Technician Relationship Specialty Start Date End Date Dylan Bansal MD [address] [place] [address] Dr Rubi [place]o [place] PCP - General 08/30/23
== END 2024-12-18 11:57 | disposition home or self-care (01) ==
LOC: HO.HMCFM 11:26
PROVIDERS: PCP Physician Assistant Medical; Visit Provider Nurse Practitioner Family
DX: R00.2 Palpitations (principal); R73.03 Prediabetes; R63.4 Abnormal weight loss; R53.83 Other fatigue; Z80.0 Family history of malignant neoplasm of digestive organs; Z98.890 Other specified postprocedural states

== ENCOUNTER → 2025-02-10 10:49 | Outpatient (REF) | payer OTHER, SELFPAY ==
--- NOTE | 2025-02-10 10:54 | CA_ITS ---
Transthoracic Echocardiogram Patient (Last, First, Middle): Audrey Prasad, Gender: Female Date of : 1960 Age: 65 Procedure Date: 02/10/2025 Procedure Type: Transthoracic Echocardiogram Location: OP Height: 167.64 cm Weight: 56.7 kg BSA: 1.64 m2 Heart Rate: 61 bpm BP: 118 / 72 mmHg Aircraft Armorer: SB Referring MD: Alma Silverio [facility] Assistant Quality Manager: Arnaud Clinton MD Symptoms: R00.2 - Palpitations Study Quality: Adequate ECG Rhythm: Sinus Conclusions: - 1. Normal LV ejection fraction 65-70% with grade 1 diastolic dysfunction 2. Mild calcific aortic valve changes noted with cardiac valvular Dopplers within normal limits 3. Normal RV systolic pressure 4. No gross pericardial effusion Findings Left Ventricle Normal left ventricular size, thickness, and systolic function. The visually estimated ejection fraction is between 65-70%. Spectral Doppler is indicative of an impaired relaxation filling pattern. E/E prime ratio is <8, consistent with normal filling pressures. Evidence suggests grade I (mild) diastolic dysfunction. Right Ventricle Normal right ventricular cavity size and systolic function. Atria Both atria are normal in size. There is no evidence of interatrial shunt. Aortic Valve There is mild calcification of the aortic valve. The peak aortic gradient is 8 mmHg.The mean gradient is 4 mmHg. There is no aortic valve regurgitation. Mitral Valve There is mild anterior and posterior mitral leaflet thickening. There is trace mitral valve regurgitation. There is no mitral valve stenosis. Pulmonic Valve The pulmonic valve is likely normal. Tricuspid Valve Likely normal tricuspid valve structure and function. There is trace tricuspid valve regurgitation. The right ventricular systolic pressure is normal. The right ventricular systolic pressure is 16 mmHg. Normal right atrial pressure. There is no evidence of pulmonary hypertension. Great Vessels All visible segments of the aorta are normal in size. The pulmonary artery was not well visualized. There is no dilatation of the ascending aorta measuring 3.20 cm. Venous The inferior vena cava is normal in size and collapses greater than 50% with inspiration. Pericardium/Pleural There is no evidence of pericardial effusion. Prior Study Comparison No prior study available for comparison. Measurements 2D Linear Measurements IVSd: 0.69 0.6-0.9/0.6-1.0 cm LVIDd: 4.62 3.9-5.3/4.2-5.9 cm LVIDd Index: 2.82 2.4-3.2/2.2-3.1 cm/m2 LVIDs: 2.70 2.0-3.6 cm LVPWd: 0.65 0.7-1.1 cm LA Diam: 3.30 2.7-3.8/3.0-4.0 cm LAIDs Index: 2.01 1.5-2.3 cm/m2 LV Mass: 116.74 67-162/88-224 g LV Mass Index: 71.18 43-95/49-115 g/m2 LVOT Diam: 1.90 3.0+(-)1.3 cm 2D Systolic Function EF 4C: 59.10 >55% EF 2C: 74.10 >55% EF BiP: 67.50 >55% Mitral Valve MV Pk E: 0.42 MV PK A: 0.50 MV Decel Time: 251.00 E/A: 0.80 E'Lateral: 7.07 E'Medial: 3.81 E/E' Med: 11.00 E/E' Lat: 5.90 PHT: 73.00 MVA PHT: 3.01 Decel [place]: 1.68 Aortic Valve AoV Pk Tommy: 1.38 AoV Mn Tommy: 0.94 AoV VTI: 0.31 AoV Pk Grad: 8.00 Aov Mn Grad: 4.00 ROSEANNA Cont.VTI: 1.76 AI Pk Tommy: 4.40 AI [place]: 1.93 LVOT LVOT Pk Tommy: 0.84 LVOT Mn Tommy: 0.58 LVOT VTI: 0.19 LVOT Pk Grad: 3.00 LVOT Mn Grad: 2.00 LVOT Diam: 1.90 LVOT Area: 2.84 Diastolic Function MV Pk E: 0.42 MV Pk A: 0.50 E/A: 0.80 E'Medial: 3.81 E/E' Med: 11.00 E' Laterial: 7.07 E/E' Lat: 5.90 Right Ventricle TAPSE (mm): 18.10 TVS' Tommy: 9.79 Tricuspid Valve TR Pk Tommy: 1.83 TR Pk Grad: 13.00 RA Press: 3.00 RVSP: 16.00 Great Vessels Aorta Sinus of Valsalva: 2.80 2.0-3.5 cm Ao Asc: 3.20 2.1-3.4 cm Pulmonary Veins Pulm Vein S/D 2.30 Pulmonary Valve PV Pk Tommy: 0.75 Peak PV Grad: 2.00 Updated in Other Vendor System with Status of Final Arnaud Clinton MD electronically signed on 02/10/2025 4:53:43 PM with status of Final
== END ==
LOC: HO.CARD 10:49
PROVIDERS: PCP Physician Assistant Medical; Visit Provider Nurse Practitioner Family
DX: R00.2 Palpitations (principal)
CPT/HCPCS: 93242; 93306

== ENCOUNTER → 2025-02-10 10:54 | Outpatient (BNV) | payer OTHER, SELFPAY | PROVIDERS: PCP Physician Assistant Medical; Visit Provider Internal Medicine Cardiovascular Disease | DX: I35.8 Other nonrheumatic aortic valve disorders (principal) | CPT/HCPCS: 93306 ==